=== PATIENT | female | born 1940 | race Caucasian/White ===

== ENCOUNTER 2016-07-02 13:27 | Inpatient (IN) | payer OTHER ==
[~2016-07-02] VITALS: Ht 154.9 cm; Wt 122.5 kg
[~2016-07-02 13:27] MED LIST: ALBUAER2 INH; AMLO-110 PO; AMOX875T PO; ASPI81TA25 PO; CARV6.25 PO; CRS/10 PO; DICL75TA2 PO; FURO-85 PO; INSUINJ4 SQ; METF-384 PO; NITR0.4S UT; NVLGI SC; POTA20TA16 PO; PRED10TA PO; RIVA1TAB4 PO; VALS-10 PO
--- NOTE | 2016-07-02 14:47 | EMERGENCY ROOM VISIT NOTE ---
History Report prepared by Yamiletibevan: Virginia Kunz Under the Supervision of: Dr. Lashay Kenyon M.D. First contact with patient: 14:07 Chief Complaint: SHORTNESS OF BREATH Stated Complaint: SOB, SWELLING TO FEET/LEGS, UNABLE TO VOID Nursing Triage Summary: Patient reports increase in lower extremity swelling and shortness of breath. Also states she has tightness in her chest and c/o stomach feeling "tight" History of Present Illness The patient is a 75 year old female who presents to the Emergency Room with complaints of persistent chest tightness over the past couple of days. It is worse when she exerts herself. She notes that her feet are swollen typically when she gets up in the morning, but it has since worsened and spread up her legs. Her abdomen also feels tighter - she cannot pinch herself as easily to administer insulin injections for her diabetes. This morning when she woke up, she had much less urine output than baseline despite being on Lasix. The patient has gained 11 lbs in the past several weeks. Past medical history also includes a-fib and blood clots. She is on Xarelto. Source of History: patient Onset: a couple days ago Position: chest Quality: other (tightness) Timing: other (persistent) Associated Symptoms: + urinary symptoms (decreased output) Note: Other symptoms: increased leg and abdominal swelling Review of Systems See HPI for pertinent positives & negatives. A total of 10 systems reviewed and were otherwise negative. Past Medical & Surgical Medical Problems: (1) Diabetes mellitus, type II (2) Dyslipidemia (3) History of pulmonary embolus (PE) (4) HTN (hypertension) (5) LBBB (left bundle branch block) (6) Obesity (7) KARMEN (obstructive sleep apnea) (8) PAF (paroxysmal atrial fibrillation) (9) Solitary nodule of lung Surgical Problems: (1) History of bilateral knee arthroplasty Family History Diabetes mellitus FH: heart disease Hypertension Social History Smoking Status: Never Smoker Alcohol Use: none Drug Use: none Marital Status: Housing Status: lives with family Occupation Status: retired Current/Historical Medications Scheduled Albuterol (Ventolin), 2 PUFFS INH QID Amlodipine (Norvasc), 5 MG PO DAILY Furosemide (Lasix), 20 MG PO DAILY Insulin Aspart (Novolog), 6 UNITS SC AC Insulin Glargine (Lantus Solostar Pen), 30 UNITS SQ BID Metformin Hcl (Glucophage), 1,000 MG PO BIDM Nitroglycerin (Nitrostat), 0.4 MG UT PRN Potassium Ext Rel (Klor-Con), 20 MEQ PO DAILY Rivaroxaban (Xarelto), 20 MG PO QDD Rosuvastatin Calcium (Crestor), 10 MG PO DAILY Valsartan/Hctz (Diovan Hct 320MG/12.5MG), 1 TAB PO DAILY Allergies Coded Allergies: No Known Allergies (Verified , 07/02/16) Physical Exam Vital Signs Date Time Temp Pulse Resp B/P Pulse Ox O2 Delivery O2 Flow Rate FiO2 07/02/16 18:52 96 07/02/16 18:29 94 20 133/79 98 Room Air 07/02/16 17:15 98 20 141/85 94 Room Air 07/02/16 15:15 89 20 140/88 92 Room Air 07/02/16 13:56 94 07/02/16 13:54 92 Room Air 07/02/16 13:49 92 Room Air 07/02/16 13:32 36.9 99 22 142/77 94 Room Air Physical Exam Vital signs reviewed. General: Chronically ill-appearing 75 year old female, in no significant distress. HEENT: No scleral icterus, PERRLA, neck supple. Atraumatic. Cardiovascular: Regular rate and rhythm, no extra sounds. Pulmonary: Crackles to the bases bilaterally with diminished lung sounds, normal work of breathing. Abdomen: Obese, soft, nontender, nondistended, positive bowel sounds. Musculoskeletal: Atraumatic, 2+ pitting edema to the bilateral lower extremities. Neurologic: Patient awake alert and oriented x 3, full strength in all 4 extremities. Cranial nerves 2 through 12 grossly intact. Skin: Warm, dry, no rash Medical Decision & Procedures ER Provider Diagnostic Interpretation: Radiology results as stated below per my review and radiologist interpretation: CHEST ONE VIEW PORTABLE HISTORY: Atypical chest pain. Short of breath. COMPARISON: Chest 09/27/2015. FINDINGS: There are low lung volumes. Diffuse interstitial and vascular thickening has progressed. There are small bilateral pleural effusions which have also increased in size. The heart remains enlarged. There is a left shoulder prosthesis. Bibasilar densities favor atelectasis from the low lung volumes and pleural effusions. IMPRESSION: 1. Progressive interstitial thickening and increase in size in the small bilateral pleural effusions. This likely represents mild pulmonary edema. 2. Low lung volumes and cardiomegaly persist. Electronically signed by: Alexis Coronado M.D. 07/02/2016 3:26 PM Dictated Date/Time: 07/02/2016 3:24 PM Laboratory Results Test 07/02/16 13:50 07/02/16 15:09 07/02/16 15:12 Total Bilirubin 0.6 mg/dl (0.2-1) Direct Bilirubin 0.2 mg/dl (0-0.2) Aspartate Amino Transf (AST/SGOT) 29 U/L (15-37) Alanine Aminotransferase (ALT/SGPT) 40 U/L (12-78) Alkaline Phosphatase 86 U/L (45-117) Total Protein 7.2 gm/dl (6.4-8.2) Albumin 3.6 gm/dl (3.4-5.0) Bedside Troponin I 0.000 ng/ml (0-0.045) JX-Kum-K-Type Natriuretic Peptide 2270 pg/ml (0-1800) Urine Color YELLOW Urine Appearance CLEAR (CLEAR) Urine pH 7.0 (4.5-7.5) Urine Specific [place] 1.005 (1.000-1.030) Urine Protein NEG (NEG) Urine Glucose (UA) NEG (NEG) Urine Ketones NEG (NEG) Urine Occult Blood NEG (NEG) Urine Nitrite NEG (NEG) Urine Bilirubin NEG (NEG) Urine Urobilinogen NEG (NEG) Urine Leukocyte Esterase TRACE (NEG) Urine WBC (Auto) 1-5 /hpf (0-5) Urine RBC (Auto) 0-4 /hpf (0-4) Urine Hyaline Casts (Auto) 0 /lpf (0-5) Urine Epithelial Cells (Auto) >30 /lpf (0-5) Urine Bacteria (Auto) NEG (NEG) Laboratory results per my review. Medications Administered Medications (Trade) Dose Ordered Sig/Renetta Route Start Time Stop Time Status Last Admin Dose Admin Furosemide (Lasix Inj) 40 mg NOW STAT IV 07/02/16 14:58 07/02/16 15:01 DC 07/02/16 15:14 40 MG Nitroglycerin (Nitrostat Tab) 0.4 mg Q5M PRN SL 07/02/16 15:00 07/03/16 20:44 DC 07/03/16 03:10 0.4 MG Potassium Chloride (Klor-Con Tab) 40 meq ONE ONCE PO 07/02/16 19:00 07/02/16 22:56 DC 07/02/16 23:44 40 MEQ ECG Indication: SOB/dyspnea Rate (beats per minute): 98 Rhythm: atrial fibrillation Findings: LBBB, no acute ischemic change, left axis deviation ED Course 1429: The patient was evaluated in room C11B. A complete history and physical examination was performed. 1458: Ordered Lasix Inj 40 mg IV, Nitroglycerin 0.4 mg SL. 180: Upon reevaluation, the patient is resting comfortably. I discussed laboratory and radiographic results with her. She verbalized agreement of the treatment plan. [facility] The patient will be evaluated for further management and care. Medical Decision Differential diagnosis: Etiologies such as infections, reactive airway disease, pneumonia, pneumothorax , COPD, CHF, cardiac ischemia, pulmonary embolism, musculoskeletal, gastrointestinal, as well as others were entertained. This patient was evaluated and appeared to be in no significant distress. IV access was obtained and laboratory work was drawn. The patient was placed on the teletypesetter monitor and found to be in a normal sinus rhythm. Chest x-ray reveals pulmonary vascular congestion. Patient was given 40 mg of IV Lasix. She was reevaluated. She felt as though her chest pain had not significantly improved. At this time the hospitalist has been contacted for further cardiac evaluation. Patient understands the plan and agrees. Consults Time Called: [id number] Consulting Physician: Con[facility] Returned Call: [phone] I discussed the case with her. The patient will be evaluated for further management and care. Impression Primary Impression: Congestive heart failure Additional Impression: Precordial chest pain Scribe Attestation The scribe's documentation has been prepared under my direction and personally reviewed by me in its entirety. I confirm that the note above accurately reflects all work, treatment, procedures, and medical decision making performed by me. Departure Information Dispostion Being Evaluated By Hospitalist Referrals Marion Recinos DO (PCP) Patient Instructions My [facility] Problem Qualifiers Primary Impression: Congestive heart failure Congestive heart failure type: unspecified congestive heart failure type Congestive heart failure chronicity: acute Qualified Codes: I50.9 - Heart failure, unspecified
[2016-07-02] MEDS ORDERED: FUROSEMIDE 40 MG/4 ML VIAL IV STA (14:58)
[2016-07-02 15:13] LABS: BASO % 0.4 %; BASO ABS # 0.05 K/uL (0-0.2); COMPLETE YES; HEMATOCRIT 37.1 % (37-47); IG% 0.3 %; LYMPH % 18.3 %; LYMPH ABS # 2.11 K/uL (1.2-3.4); MEAN CELL VOLUME 91.8 fL (80-100); MEAN CORPUSCULAR HEMOGLOBIN 29.5 pg (25-34); MEAN CORPUSCULAR HGB CONC 32.1 g/dl (32-36); MEAN PLATELET VOLUME 10.9 fL (7.4-10.4); MONO % 8.1 %; NEUT % 72.9 %; PLATELET COUNT 237 K/uL (130-400); RED BLOOD COUNT 4.04 M/uL (4.2-5.4); WHITE BLOOD COUNT 11.55 K/uL (4.8-10.8)
[2016-07-02 15:21] LABS: BUN/CREATININE RATIO 17.9 (10-20); CREATININE 0.94 mg/dl (0.60-1.20); MAGNESIUM 1.9 mg/dl (1.8-2.4); POTASSIUM 3.3 mmol/L (3.5-5.1)
[2016-07-02 15:26] LABS: CKMB/CK RATIO 1.4 (0-3.0)
--- NOTE | 2016-07-02 15:27 | DIAGNOSTIC IMAGING REPORT ---
CHEST ONE VIEW PORTABLE HISTORY: Atypical chest pain. Short of breath. COMPARISON: Chest 09/27/2015. FINDINGS: There are low lung volumes. Diffuse interstitial and vascular thickening has progressed. There are small bilateral pleural effusions which have also increased in size. The heart remains enlarged. There is a left shoulder prosthesis. Bibasilar densities favor atelectasis from the low lung volumes and pleural effusions. IMPRESSION: 1. Progressive interstitial thickening and increase in size in the small bilateral pleural effusions. This likely represents mild pulmonary edema. 2. Low lung volumes and cardiomegaly persist. Electronically signed by: Alexis Coronado M.D. 07/02/2016 3:26 PM Dictated Date/Time: 07/02/2016 3:24 PM
[2016-07-02 15:38] LABS: URINE APPEARANCE CLEAR (CLEAR); URINE BILIRUBIN NEG (NEG); URINE COLOR YELLOW; URINE EPITHELIAL CELL AUTO >30 /lpf (0-5); URINE NITRITE NEG (NEG); URINE SPECIFIC GRAVITY 1.005 (1.000-1.030); UROBILINOGEN NEG (NEG); ZZUR CULT IF INDIC CLEAN CATCH NO
[2016-07-02 15:51] LABS: MANUAL MICROSCOPIC REQUIRED? NO; REVIEW REQ? NO
[2016-07-02] MEDS ORDERED: ASPIRIN 81 MG ECTAB PO STA (18:58)
[2016-07-02] MEDS ORDERED: NITROGLYCERIN 0.4 MG SL PER TAB CHARGE UT SCH (19:00)
[2016-07-02] MEDS ORDERED: POTASSIUM CHLORIDE 20 MEQ TABCR PO ONE (19:00)
[2016-07-02] MEDS ORDERED: ACETAMINOPHEN 325 MG TAB PO PRN (19:15)
[2016-07-02] MEDS ORDERED: DEXTROSE 50% 50 ML SYR IV PRN (19:15)
[2016-07-02] MEDS ORDERED: ONDANSETRON INJ 2 MG/ML 2 ML VIAL IV PRN (19:15)
[2016-07-02] MEDS ORDERED: GLUCAGON FOR INJ 1 MG VIAL SQ PRN (19:15)
[2016-07-02] MEDS ORDERED: GLUCOSE 40% GEL 15 GM TUBE PO PRN (19:15)
[2016-07-02] MEDS ORDERED: GLUCOSE 10 TABS/TUBE PO PRN (19:15)
--- NOTE | 2016-07-02 19:33 | History and Physical ---
History & Physical Date & Time of Service: Jul 02, 2016 at 19:16 Chief Complaint: Sob, Swelling To Feet/Legs, Unable To Void Primary Care Physician: Marion Recinos DO History of Present Illness Source: patient, clinic records 75 year old female with history of Atrial Fibrillation on Xarelto, Moderate Mitral Regurgitation, LBBB, Chronic Leg Edema other problems noted below presenting with progressive dyspnea, chest discomfort , leg swelling and weight gain. Follows with Dr. Palmer for Cardiology. Patient was apparently at her usual state of health until last week when she started to notice exertional dyspnea, associated with chest tightness, resolving with rest. She has also noticed increased leg swelling and weight gain of about 10 lbs. Patient admits to consuming more potato chips and canned soup recently. She regularly takes her medications. She presented to her PCP and was advised to proceed to the ER. At the ER, she arrived with stable VS. BNP is elevated, CXR showed possible CHF pattern. Lasix 40mg IV was ordered. On exam, patient sitting up in in bed, appears comfortable. States she feels somewhat improved- has been diuresing well at the ER. No chest pain, palpitations, dizziness, nausea. No other symptoms. Past Medical/Surgical History Medical Problems: (1) BACKACHE NOS Status: Chronic (2) DIAB FRANK WO COMP TYPE II OR NOS/NOT UNCONTROLLED Status: Chronic (3) HYPERLIPIDEMIA NEC/NOS Status: Chronic (4) HYPERTENSION NOS Status: Chronic (5) KNEE JOINT REPLACEMENT STATUS Status: Resolved (6) LEFT BB BLOCK NEC Status: Chronic (7) OBESITY, NOS Status: Chronic (8) OTH PULMON EMBOLISM/INFARCT Status: Resolved (9) SHOULDER REGION DIS NEC Status: Resolved Family History Diabetes mellitus FH: heart disease Hypertension Social History Smoking Status: Never Smoker Drug Use: none Marital Status: Housing status: lives with family Occupational Status: retired Immunizations History of Influenza Vaccine: Yes Influenza Vaccine Date: Feb 25, 2012 History of Tetanus Vaccine?: UTD Tetanus Immunization Date: Nov 17, 2002 History of Pneumococcal: Yes Pneumococcal Date: Feb 24, 2009 History of Hepatitis B Vaccine: No Multi-Drug Resistant Organisms History of MDRO: No Allergies Coded Allergies: No Known Allergies (Verified , 07/02/16) Home Medications Scheduled Albuterol (Ventolin), 2 PUFFS INH QID Amlodipine (Norvasc), 5 MG PO DAILY Furosemide (Lasix), 20 MG PO DAILY Insulin Aspart (Novolog), 6 UNITS SC AC Insulin Glargine (Lantus Solostar Pen), 30 UNITS SQ BID Metformin Hcl (Glucophage), 1,000 MG PO BIDM Nitroglycerin (Nitrostat), 0.4 MG UT PRN Potassium Ext Rel (Klor-Con), 20 MEQ PO DAILY Rivaroxaban (Xarelto), 20 MG PO QDD Rosuvastatin Calcium (Crestor), 10 MG PO DAILY Valsartan/Hctz (Diovan Hct 320MG/12.5MG), 1 TAB PO DAILY Review of Systems * Constitutional- no fever; no weight loss Eyes- no acute visual changes ENT- no sinus drainage; no pharyngitis Pulmonary-(+) as noted above Cardiac- (+) as noted above GI- no nausea, no vomiting, no diarrhea, no melena, no hematochezia - no dysuria, no hematuria Musculoskeletal- no arthralgias, no myalgias Derm- no rashes, no new skin lesions, no changing skin lesions Hematologic- no unusual bruising, no unusual bleeding Lymphatics- no adenopathy Endocrine- no polyuria or polydipsia; no heat or cold intolerance Neuro- no headaches, no focal neurologic symptoms Psych- no anxiety, no depression Physical Exam Vital Signs Date Time Temp Pulse Resp B/P Pulse Ox O2 Delivery O2 Flow Rate FiO2 07/02/16 18:52 96 07/02/16 18:29 94 20 133/79 98 Room Air 07/02/16 17:15 98 20 141/85 94 Room Air 07/02/16 15:15 89 20 140/88 92 Room Air 07/02/16 13:56 94 07/02/16 13:54 92 Room Air 07/02/16 13:49 92 Room Air 07/02/16 13:32 36.9 99 22 142/77 94 Room Air General Appearance: WD/WN, no apparent distress Head: normocephalic, atraumatic Eyes: normal inspection, PERRL, EOMI, sclerae normal ENT: normal ENT inspection, hearing grossly normal, pharynx normal Neck: supple, no adenopathy, thyroid normal, + JVD (mild) Respiratory/Chest: chest non-tender, lungs clear, normal breath sounds, no respiratory distress, no accessory muscle use Cardiovascular: + systolic murmur (grade 2-3/6), + irregularly irregular Abdomen/GI: normal bowel sounds, non tender, soft Extremities/Musculoskelatal: + swelling (grade 1-2 lower leg edema, no tenderness/warmth/erythema) Neurologic/Psych: draw off worker II-XII nml as tested, no motor/sensory deficits, alert, normal mood/affect, normal reflexes, oriented x 3 Skin: normal color, warm/dry, no rash Lymphatic: no adenopathy Diagnostics Laboratory Results Results Past 24 Hours Test 07/02/16 13:50 07/02/16 15:09 07/02/16 15:12 Range/Units White Blood Count 11.55 4.8-10.8 K/uL Red Blood Count 4.04 4.2-5.4 M/uL Hemoglobin 11.9 12.0-16.0 g/dL Hematocrit 37.1 37-47 % Mean Corpuscular Volume 91.8 80-100 fL Mean Corpuscular Hemoglobin 29.5 25-34 pg Mean Corpuscular Hemoglobin Concent 32.1 32-36 g/dl Platelet Count 237 130-400 K/uL Mean Platelet Volume 10.9 7.4-10.4 fL Neutrophils (%) (Auto) 72.9 % Lymphocytes (%) (Auto) 18.3 % Monocytes (%) (Auto) 8.1 % Eosinophils (%) (Auto) 0.0 % Basophils (%) (Auto) 0.4 % Neutrophils # (Auto) 8.42 1.4-6.5 K/uL Lymphocytes # (Auto) 2.11 1.2-3.4 K/uL Monocytes # (Auto) 0.94 0.11-0.59 K/uL Eosinophils # (Auto) 0.00 0-0.5 K/uL Basophils # (Auto) 0.05 0-0.2 K/uL RDW Standard Deviation 56.1 36.4-46.3 fL RDW Coefficient of Variation 16.9 11.5-14.5 % Immature Granulocyte % (Auto) 0.3 % Immature Granulocyte # (Auto) 0.03 0.00-0.02 K/uL Sodium Level 144 136-145 mmol/L Potassium Level 3.3 3.5-5.1 mmol/L Chloride Level 105 98-107 mmol/L Carbon Dioxide Level 28 21-32 mmol/L Anion Gap 11.0 3-11 mmol/L Blood Urea Nitrogen 17 7-18 mg/dl Creatinine 0.94 0.60-1.20 mg/dl Est Creatinine Clear Calc Drug Dose 63.7 ml/min Estimated GFR () 68.3 Estimated GFR (Non- 58.9 BUN/Creatinine Ratio 17.9 10-20 Random Glucose 121 70-99 mg/dl Calcium Level 9.0 8.5-10.1 mg/dl Magnesium Level 1.9 1.8-2.4 mg/dl Total Bilirubin 0.6 0.2-1 mg/dl Direct Bilirubin 0.2 0-0.2 mg/dl Aspartate Amino Transf (AST/SGOT) 29 15-37 U/L Alanine Aminotransferase (ALT/SGPT) 40 12-78 U/L Alkaline Phosphatase 86 45-117 U/L Total Creatine Kinase 63 26-192 U/L Creatine Kinase MB 0.9 0.5-3.6 ng/ml Creatine Kinase MB Ratio 1.4 0-3.0 Total Protein 7.2 6.4-8.2 gm/dl Albumin 3.6 3.4-5.0 gm/dl Bedside Troponin I 0.000 0-0.045 ng/ml QU-Xiz-R-Type Natriuretic Peptide 2270 0-1800 pg/ml Urine Color YELLOW Urine Appearance CLEAR CLEAR Urine pH 7.0 4.5-7.5 Urine Specific [place] 1.005 1.000-1.030 Urine Protein NEG NEG Urine Glucose (UA) NEG NEG Urine Ketones NEG NEG Urine Occult Blood NEG NEG Urine Nitrite NEG NEG Urine Bilirubin NEG NEG Urine Urobilinogen NEG NEG Urine Leukocyte Esterase TRACE NEG Urine WBC (Auto) 1-5 0-5 /hpf Urine RBC (Auto) 0-4 0-4 /hpf Urine Hyaline Casts (Auto) 0 0-5 /lpf Urine Epithelial Cells (Auto) >30 0-5 /lpf Urine Bacteria (Auto) NEG NEG Diagnostic Radiology CXR 1. Progressive interstitial thickening and increase in size in the small bilateral pleural effusions. This likely represents mild pulmonary edema. 2. Low lung volumes and cardiomegaly persist. EKG A fib, HR 98, LBBB Impression Assessment and Plan 75 year old female with history of Atrial Fibrillation on Xarelto, Moderate Mitral Regurgitation, LBBB, Chronic Leg Edema other problems noted below presenting with progressive dyspnea, chest discomfort , leg swelling and weight gain. POSSIBLE CHF EXACERBATION HISTORY OF MITRAL REGURGITATION - Lasix 40mg IV given - check echo - continue Carvedilol, Valsartan Cardiology consulted - Fluid restriction CHEST DISCOMFORT - likely from above - serial cardiac markers start Aspirin continue Xarelto, Statin, Carvedilol, Valsartan HYPOKALEMIA - PO K ordered - monitor PAROXYSMAL A FIB - continue Carvedilol, Xarelto DM 2 - continue Lantus BID ISS HLD - continue Crestor KARMEN CPAP intolerant HISTORY OF PE continue Xarelto LBBB chronic OBESITY DVT prophylaxis on Xarelto Disposition pending lives at home with will need Home Health Services VTE Prophylaxis VTE Risk Assessment Done? Y/N: Yes Risk Level: High
[2016-07-02] MEDS ORDERED: LEVALBUTEROL/IPRATROPIUM NEB INH SCH (21:00)
[2016-07-02] MEDS: INSULIN ASPART 100 UNITS/ML 3 ML PEN SC SCH (21:00)
[2016-07-02 21:55] LABS: CKMB/CK RATIO 1.1 (0-3.0)
[2016-07-02] MEDS: CARVEDILOL 12.5 MG TAB PO SCH (23:45)
[2016-07-02] MEDS: RIVAROXABAN 10 MG TAB PO SCH (23:46)
[2016-07-02] MEDS: INSULIN GLARGINE SOLOSTAR 100 UNITS/ML 3 ML PEN SQ SCH (23:48)
[2016-07-03] VITALS (10 sets, daily range): BP systolic 111–157; BP diastolic 70–76; PULSE 85–96; TEMP 36.3–36.7; O2SAT 88–95; Ht 154.9 cm; Wt 122.5 kg
[2016-07-03] MEDS: NITROGLYCERIN 0.4 MG SL PER TAB CHARGE SL PRN ×3 (03:00→03:10)
[2016-07-03 03:58] LABS: CKMB/CK RATIO 1.2 (0-3.0)
[2016-07-03 06:29] LABS: ESTIMATED AVERAGE GLUCOSE 140 mg/dl; HA1C FLAG Normal (Normal)
[2016-07-03] MEDS: IPRATROPIUM BROMIDE NEB SOLN 0.02% 2.5 ML VIAL INH SCH ×2 (07:33→14:10)
[2016-07-03] MEDS: LEVALBUTEROL 1.25MG/0.5ML NEB INH SCH ×2 (07:33→14:10)
[2016-07-03] MEDS ORDERED: PERFLUTREN LIPID MICROSPHERE (DEFINITY) IV ONE (07:44)
[2016-07-03] MEDS: INSULIN ASPART 100 UNITS/ML 3 ML PEN SC SCH ×4 (08:47→20:54)
--- NOTE | 2016-07-03 08:57 | ECHOCARDIOGRAM REPORT ---
*NOTICE TO RECEIVING LIBERTARIAN AGENCY This information is strictly Confidential and protected under [place] law. [place] law prohibits you from making any further disclosure of this information unless further disclosure is expressly permitted by the written consent of the person to whom it pertains or is authorized by law. A general authorization for the release of medical or other information is not sufficient for this purpose. Hospital accepts no responsibility if the information is made available to any other person, INCLUDING THE PATIENT. Interpretation Summary * Name: ZULMA ESPANA Study Date: 07/03/2016 06:59 AM BP: 119/74 mmHg * Patient Location: .[facility]\S\N285\S\2 HR: 95 * : 1940 (M/d/yyyy) Gender: Female Height: 61 in * Age: 75 yrs Ethnicity: [place] Weight: 278 lb * Ordering Physician: Shay Spaulding * Performed By: Mary Kothari * * Reason For Study: CHF * BSA: 2.2 m2 * The study was technically limited. * -- Conclusions -- * The left ventricle is normal in size. * Ejection Fraction = 60-65%. * Septal motion is consistent with conduction abnormality. * The right ventricular systolic function is normal. * The left atrium is moderately dilated. * The right atrium is mild to moderately dilated. * There is moderate mitral regurgitation. * There is moderate tricuspid regurgitation. * The study was technically limited. Procedure Details * A complete two-dimensional transthoracic echocardiogram was performed (2D, M-mode, Doppler and color flow Doppler). * The study was technically difficult. * There were technical limitations due to patient'spoor positioning and body habitus. * Limited views were obtained. * A contrast injection of Definity was performed to improve assessment of LV function. * Contrast was injected into an intravenous site in the right arm. * One vial of Definity ultrasound contrast was diluted in normal saline to a total volume of 10 ml. A total of '4' ml of solution was administered during imaging. * Lot # [id number] of Definity utilized for procedure. * Expiration date 07/06. * The attending nurse who injected the contrast agent was ARJUN TINSLEY RN. Left Ventricle * The left ventricle is normal in size. * There is normal left ventricular wall thickness. * Ejection Fraction = 60-65%. * Septal motion is consistent with conduction abnormality. Right Ventricle * The right ventricle is grossly normal size. * The right ventricular systolic function is normal. Atria * The left atrium is moderately dilated. * The right atrium is mild to moderately dilated. * The interatrial septum is intact with no evidence for an atrial septal defect. Mitral Valve * There is moderate mitral annular calcification. * There is moderate mitral regurgitation. Tricuspid Valve * The tricuspid valve is not well visualized, but is grossly normal. * There is moderate tricuspid regurgitation. Aortic Valve * The aortic valve is not well visualized. * No hemodynamically significant valvular aortic stenosis. * There is no significant aortic regurgitation. Pulmonic Valve * The pulmonic valve is not well visualized. MMode 2D Measurements and Calculations IVSd 1.5 cm IVSs 2.0 cm LVIDd 4.4 cm LVIDs 2.9 cm LVPWd 1.0 cm LVPWs 2.0 cm IVS/LVPW 1.5 FS 33.6 % EDV(Teich) 85.9 ml ESV(Teich) 32.1 ml EF(Teich) 62.6 % EDV(cubed) 82.9 ml ESV(cubed) 24.3 ml EF(cubed) 70.7 % % IVS thick 28.9 % % LVPW thick 91.9 % LV mass(C)d 208.4 grams LV mass(C)dI 95.9 grams/m\S\2 LV mass(C)s 248.6 grams LV mass(C)sI 114.4 grams/m\S\2 CO(Teich) 3.9 l/min CI(Teich) 1.8 l/min/m\S\2 SV(Teich) 53.8 ml SI(Teich) 24.8 ml/m\S\2 CO(cubed) 4.3 l/min CI(cubed) 2.0 l/min/m\S\2 SV(cubed) 58.7 ml SI(cubed) 27.0 ml/m\S\2 ACS 1.7 cm LA dimension 5.2 cm asc Aorta Diam 3.4 cm LVOT diam 2.3 cm LVOT area 4.0 cm\S\2 LVAd ap4 38.6 cm\S\2 LVLd ap4 10.0 cm EDV(MOD-sp4) 122.0 ml LVAs ap4 22.2 cm\S\2 LVLs ap4 8.2 cm ESV(MOD-sp4) 46.0 ml EF(MOD-sp4) 62.3 % LVAd ap2 38.8 cm\S\2 LVLd ap2 9.8 cm EDV(MOD-sp2) 127.0 ml LVAs ap2 20.6 cm\S\2 LVLs ap2 7.3 cm ESV(MOD-sp2) 47.0 ml EF(MOD-sp2) 63.0 % CO(MOD-sp4) 5.5 l/min CI(MOD-sp4) 2.6 l/min/m\S\2 SV(MOD-sp4) 76.0 ml SI(MOD-sp4) 35.0 ml/m\S\2 CO(MOD-sp2) 5.8 l/min CI(MOD-sp2) 2.7 l/min/m\S\2 SV(MOD-sp2) 80.0 ml SI(MOD-sp2) 36.8 ml/m\S\2 Doppler Measurements and Calculations MV E max doreen 117.0 cm/sec MV dec time 0.32 sec Ao V2 max 95.0 cm/sec Ao max PG 3.6 mmHg Ao max PG (full) 2.2 mmHg DAMIAN(V,A) 2.5 cm\S\2 DAMIAN(V,D) 2.5 cm\S\2 LV V1 max PG 1.4 mmHg LV V1 max 59.0 cm/sec MR max doreen 474.4 cm/sec MR max PG 90.0 mmHg MR mean doreen 353.8 cm/sec MR mean PG 56.3 mmHg MR VTI 148.2 cm PA V2 max 79.0 cm/sec PA max PG 2.5 mmHg PI end-d doreen 99.9 cm/sec TR max doreen 304.9 cm/sec
[2016-07-03] MEDS: VALSARTAN/HCTZ 320/12.5 MG TAB PO SCH (09:00)
[2016-07-03] MEDS: INSULIN GLARGINE SOLOSTAR 100 UNITS/ML 3 ML PEN SQ SCH ×2 (09:00→20:55)
[2016-07-03] MEDS: FUROSEMIDE INJ 40 MG in SYRINGE 0 ML IV SCH (09:22)
--- NOTE | 2016-07-03 09:31 | Clinical Documentation Query ---
ALE Martinez : CLINICAL DOCUMENTATION QUERY Patient is a 75 year old female admitted for possible CHF exacerbation, not otherwise specified. Noted history of mitral regurgitation and hypertension. Echocardiogram demonstrated normal biventricular systolic function. She is being monitored on telemetry, is receiving IV Lasix, continued on Coreg and Valsartan, will be maintained on a fluid restriction, monitored by I/O, daily weights, and is to be seen in consultation by cardiology. In your clinical opinion is this patient being managed for: ( ) Acute on chronic diastolic congestive heart failure ( ) Other explanation of clinical findings (Please Explain) ( ) Unable to determine (Please Define) ( ) Need to Discuss ( ) Not Agree The medical record reflects the following clinical findings, treatment, and risk factors. Clinical Indicators: As above Treatment: She is being monitored on telemetry, is receiving IV Lasix, continued on Coreg and Valsartan, will be maintained on a fluid restriction, monitored by I/O, daily weights, and is to be seen in consultation by cardiology. Risk Factors: Age, hypertension, valvular disease. Please clarify and document your clinical opinion in the progress notes and discharge summary. Terms such as "probable", "suspected", "likely", "questionable", "possible", or "still to be ruled out" are acceptable. IF IN AGREEMENT, YOU MUST DOCUMENT ABOVE DIAGNOSTIC STATEMENT IN DAILY PROGRESS NOTES AND DISCHARGE SUMMARY. This document is not part of the patient's record. Thank You, Josiah Ferraro, RN [phone]
[2016-07-03] MEDS: ASPIRIN 81 MG ECTAB PO SCH (12:14)
[2016-07-03] MEDS: CARVEDILOL 12.5 MG TAB PO SCH ×2 (12:15→20:51)
[2016-07-03] MEDS: ROSUVASTATIN CALCIUM 10 MG TAB PO SCH (12:15)
[2016-07-03] MEDS: POTASSIUM CHLORIDE 20 MEQ TABCR PO SCH (12:21)
[2016-07-03] MEDS: AMLODIPINE BESYLATE 5 MG TAB PO SCH (12:22)
--- NOTE | 2016-07-03 15:24 | Progress Note ---
Medicine Progress Note Date & Time of Visit: Jul 03, 2016 at 15:17. Subjective patient seen resting in bed, states she feels improved compared to yesterday denies dyspnea on exertion feels her extremities are less swollen denies chest pain, dizziness, palpitations no other symptoms Objective Last 8 Hrs Date Time Temp Pulse Resp B/P Pulse Ox O2 Delivery O2 Flow Rate FiO2 07/03/16 14:10 92 18 93 Nasal Cannula 2.0 07/03/16 12:00 95 Room Air 2.0 07/03/16 11:28 36.3 96 18 122/71 94 2.0 07/03/16 08:00 88 Room Air 2.0 07/03/16 08:00 36.7 93 20 157/70 93 Nasal Cannula 2.0 07/03/16 07:34 95 18 88 Room Air Physical Exam: General- oriented x 3, not in distress, speaks in sentences with no effort Eyes- anicteric ENT- oropharynx clear Neck- supple, no JVD, no adenopathy Lungs- clear to auscultation bilaterally Heart- normal rate , irregularly irregular rhythm; no murmurs Abdomen- normal bowel sounds, soft, nontender Extremities- grade 1 pretibial edema, no calf tenderness; peripheral pulses intact Neuro- alert, oriented x 3; no gross focal deficits Skin- warm & dry Laboratory Results: Last 24 Hours Test 07/02/16 21:00 07/03/16 03:30 07/03/16 08:02 07/03/16 11:47 Total Creatine Kinase 61 U/L 57 U/L Creatine Kinase MB 0.7 ng/ml 0.7 ng/ml Creatine Kinase MB Ratio 1.1 1.2 Troponin I < 0.015 ng/ml < 0.015 ng/ml Estimated Average Glucose 140 mg/dl Hemoglobin A1c 6.5 % Bedside Glucose 80 mg/dl 90 mg/dl Test 07/03/16 14:48 Assessment & Plan ECHO -- Conclusions -- * The left ventricle is normal in size. * Ejection Fraction = 60-65%. * Septal motion is consistent with conduction abnormality. * The right ventricular systolic function is normal. * The left atrium is moderately dilated. * The right atrium is mild to moderately dilated. * There is moderate mitral regurgitation. * There is moderate tricuspid regurgitation. * The study was technically limited. 75 year old female with history of Atrial Fibrillation on Xarelto, Moderate Mitral Regurgitation, LBBB, Chronic Leg Edema other problems noted below presenting with progressive dyspnea, chest discomfort , leg swelling and weight gain. POSSIBLE CHF EXACERBATION, VALVULAR ETIOLOGY? MODERATE MITRAL AND TRICUSPID REGURGITATION - patient also admits dietary indiscretion recently - echo noted above - on lasix 40mg IV diuresing well - clinically improving - continue Lasix 40mg IV daily continue usual Carvedilol, Valsartan Cardiology consulted - Fluid restriction CHEST DISCOMFORT - likely from above - serial cardiac markers: negative started Aspirin continue Xarelto, Statin, Carvedilol, Valsartan HYPOKALEMIA - PO K ordered - PRP pending PAROXYSMAL A FIB - continue Carvedilol, Xarelto DM 2 - continue Lantus BID ISS HLD - continue Crestor KARMEN CPAP intolerant HISTORY OF PE continue Xarelto LBBB chronic OBESITY DVT prophylaxis on Xarelto Disposition pending lives at home with will need Home Health Services Current Inpatient Medications: Current Inpatient Medications Medications (Trade) Dose Ordered Sig/Renetta Route Start Time Stop Time Status Last Admin Dose Admin Nitroglycerin 0.4 mg 0.4 mg Q5M PRN SL 07/02/16 15:00 08/01/16 14:59 07/03/16 03:10 0.4 MG Furosemide/Syringe (Lasix Inj/ Syringe) 4 ml @ 4 mls/min DAILY IV 07/03/16 09:00 08/02/16 08:59 07/03/16 09:22 4 MLS/MIN Aspirin (Ecotrin Tab) 81 mg QAM PO 07/03/16 09:00 08/02/16 08:59 07/03/16 12:14 81 MG Insulin Aspart (novoLOG ASPART) SLIDING SCALE G... ACHS SC 07/02/16 21:00 08/01/16 20:59 Amlodipine Besylate (Norvasc Tab) 5 mg DAILY PO 07/03/16 09:00 08/02/16 08:59 07/03/16 12:22 5 MG Insulin Glargine (Lantus Solostar Pen) 30 unit BID SQ 07/02/16 21:00 08/01/16 20:59 07/02/16 23:48 30 UNIT Nitroglycerin (Nitrostat Tab) 0.4 mg PRN UT 07/02/16 19:00 08/01/16 18:59 Potassium Chloride (Klor-Con Tab) 20 meq DAILY PO 07/03/16 09:00 08/02/16 08:59 07/03/16 12:21 20 MEQ Rivaroxaban (Xarelto Tab) 20 mg DAILY@1800 PO 07/02/16 21:00 08/01/16 20:59 07/02/16 23:46 20 MG Rosuvastatin Calcium (Crestor Tab) 10 mg DAILY PO 07/03/16 09:00 08/02/16 08:59 07/03/16 12:15 10 MG HCTZ/Valsartan (Diovan Hct 320/ 12.5MG Tab) 1 tab DAILY PO 07/03/16 09:00 08/02/16 08:59 Glucose (Glucose 40% Gel) 15-30 GRAMS 15 GRAMS... UD PRN PO 07/02/16 19:15 08/01/16 19:14 Glucose (Glucose Chew Tab) 4-8 Tablets 4 Tabl... UD PRN PO 07/02/16 19:15 08/01/16 19:14 Dextrose (Dextrose 50% 50ML Syringe) 25-50ML OF 50% DW IV FOR... UD PRN IV 07/02/16 19:15 08/01/16 19:14 Glucagon (Glucagon Inj) 1 mg UD PRN SQ 07/02/16 19:15 08/01/16 19:14 Acetaminophen (Tylenol Tab) 650 mg Q4H PRN PO 07/02/16 19:15 08/01/16 19:14 Ondansetron HCl (Zofran Inj) 4 mg Q6H PRN IV 07/02/16 19:15 08/01/16 19:14 Carvedilol (Coreg Tab) 12.5 mg BID PO 07/02/16 21:00 08/01/16 20:59 07/03/16 12:15 12.5 MG Ipratropium [place] (Atrovent 0.02% 0.5MG/2.5ML Neb) 0.5 mg Q6RWA INH 07/03/16 09:00 08/02/16 08:59 07/03/16 14:10 0.5 MG Levalbuterol (Xopenex 1.25MG/ 0.5ML Neb) 1.25 mg Q6RWA INH 07/03/16 09:00 08/02/16 08:59 07/03/16 14:10 1.25 MG
[2016-07-03 15:33] LABS: BASO % 0.4 %; BASO ABS # 0.05 K/uL (0-0.2); COMPLETE YES; HEMATOCRIT 36.8 % (37-47); IG% 0.4 %; LYMPH % 17.2 %; LYMPH ABS # 1.95 K/uL (1.2-3.4); MEAN CELL VOLUME 88.9 fL (80-100); MEAN CORPUSCULAR HEMOGLOBIN 28.5 pg (25-34); MEAN CORPUSCULAR HGB CONC 32.1 g/dl (32-36); MEAN PLATELET VOLUME 10.1 fL (7.4-10.4); MONO % 9.3 %; NEUT % 72.7 %; PLATELET COUNT 239 K/uL (130-400); RED BLOOD COUNT 4.14 M/uL (4.2-5.4); WHITE BLOOD COUNT 11.31 K/uL (4.8-10.8)
[2016-07-03 16:01] LABS: BUN/CREATININE RATIO 19.2 (10-20); CALCIUM 9.3 mg/dl (8.5-10.1); CREATININE 0.92 mg/dl (0.60-1.20); POTASSIUM 3.3 mmol/L (3.5-5.1)
--- NOTE | 2016-07-03 16:47 | CARDIOLOGY CONSULTATION ---
DATE OF CONSULTATION: 07/03/2016 DATE OF CONSULTATION: 07/03/2016. Consultation for the [facility]. REASON FOR CONSULTATION: Heart failure. HISTORY OF PRESENT ILLNESS: This is a 75-year-old female with multiple medical problems including obesity, atrial fibrillation, diastolic heart failure, sleep apnea and chronic lower extremity edema. She admits to not being compliant with her diet and eating a lot of potato chips recently. Over the past several days she has noticed some increased lower extremity edema and shortness of breath. She presented to the Emergency Department where she has been given IV diuretics and has felt much improved. She has no complaints of chest pain or heart palpitations. Her echocardiogram completed this admission indicates preserved left ventricular systolic function with evidence of septal conduction abnormality due to left bundle branch block. There is moderate mitral and tricuspid regurgitation. EKG on admission reveals atrial fibrillation with left bundle branch block. Currently, the patient is resting comfortably. ALLERGIES: No known medical allergies. PAST MEDICAL HISTORY: As outlined above, the patient has a history of obesity, hypertension, dyslipidemia, diabetes, sleep apnea, atrial fibrillation, diastolic heart failure, left bundle branch block. SOCIAL HISTORY: She lives with her . She is a nonsmoker. FAMILY MEDICAL HISTORY: Noncontributory. REVIEW OF SYSTEMS: A 10-point review of systems is negative except for the history of chief complaint. PHYSICAL EXAMINATION: VITAL SIGNS: Blood pressure is 150/70, pulse is irregular at 90 beats per minute. GENERAL: She is afebrile. HEAD, EYES, EARS, NOSE, AND THROAT: She is normocephalic. Pupils are equal and reactive to light. Extraocular muscles are intact bilaterally. NECK: The neck veins are flat. Carotids have good upstrokes bilaterally without bruits. Thyroid is nonpalpable. RESPIRATORY: Breath sounds equal bilaterally and clear to auscultation. CARDIOVASCULAR: Heart has an irregular rhythm. Normal S1, S2. No S3, S4. GASTROINTESTINAL: Abdomen is obese, soft, nontender without organomegaly. EXTREMITIES: Have edema to the mid calves bilaterally. NEUROLOGIC: Grossly intact. SKIN: Warm to touch. LYMPH NODES: Negative to palpation. LABORATORY DATA: Hemoglobin is 11.8, creatinine is 0.94. Pro-natriuretic peptide is 2270. Troponins are negative. IMPRESSION: 1. Acute on chronic diastolic heart failure. 2. Atrial fibrillation. 3. Obesity. 4. Sleep apnea. 5. Diabetes. 6. Hypertension. 7. Dyslipidemia. RECOMMENDATIONS: I would continue the patient's diaphoresis until she is at her true weight. She should have her electrolytes replaced such as potassium. She was also recently diagnosed with gout and with the diabetics she may relapse and we have to be careful. Otherwise she is doing well.
[2016-07-03] MEDS ORDERED: LEVALBUTEROL 1.25MG/0.5ML NEB INH PRN (17:00)
[2016-07-03] MEDS ORDERED: IPRATROPIUM BROMIDE NEB SOLN 0.02% 2.5 ML VIAL INH PRN (17:00)
[2016-07-03] MEDS: RIVAROXABAN 10 MG TAB PO SCH (18:23)
[2016-07-03] MEDS ORDERED: POTASSIUM CHLORIDE 20 MEQ TABCR PO ONE (21:00)
[2016-07-04 04:00] VITALS: O2SAT 96
[2016-07-04 04:40] VITALS: BP 140/83; PULSE 91; TEMP 36.5; O2SAT 96
[2016-07-04 07:43] VITALS: BP 131/75; PULSE 93; TEMP 36.5; O2SAT 90
[2016-07-04] MEDS: ROSUVASTATIN CALCIUM 10 MG TAB PO SCH (07:54)
[2016-07-04] MEDS: CARVEDILOL 12.5 MG TAB PO SCH ×2 (07:54→20:48)
[2016-07-04] MEDS: FUROSEMIDE INJ 40 MG in SYRINGE 0 ML IV SCH ×2 (07:54→17:19)
[2016-07-04] MEDS: ASPIRIN 81 MG ECTAB PO SCH (07:55)
[2016-07-04] MEDS: VALSARTAN/HCTZ 320/12.5 MG TAB PO SCH (07:55)
[2016-07-04] MEDS: POTASSIUM CHLORIDE 20 MEQ TABCR PO SCH (07:56)
[2016-07-04] MEDS: AMLODIPINE BESYLATE 5 MG TAB PO SCH (07:57)
[2016-07-04] MEDS: INSULIN ASPART 100 UNITS/ML 3 ML PEN SC SCH ×4 (08:34→20:52)
[2016-07-04] MEDS: INSULIN GLARGINE SOLOSTAR 100 UNITS/ML 3 ML PEN SQ SCH ×2 (08:36→20:51)
[2016-07-04 10:24] LABS: BUN/CREATININE RATIO 18.8 (10-20); CALCIUM 9.2 mg/dl (8.5-10.1); CREATININE 0.95 mg/dl (0.60-1.20); MAGNESIUM 2.1 mg/dl (1.8-2.4); POTASSIUM 3.4 mmol/L (3.5-5.1)
--- NOTE | 2016-07-04 11:08 | PROGRESS NOTE ---
DATE: 07/04/2016 FOLLOWUP VISIT SUBJECTIVE: The patient is a 75-year-old with a history of multiple medical problems including obesity, atrial fibrillation, diastolic heart failure, sleep apnea, and chronic lower extremity edema. She has not been compliant with diet at home. She presented with increasing lower extremity edema and shortness of breath due to volume overload. She has been given diuretics and has lost 3 kilograms of body weight so far. Of note, is that she is not being compliant here in the hospital with fluid restriction. She also takes her oxygen off when it is bothering her. She still desaturates without supplemental oxygen. The patient now understands regarding the fluid restriction, as well as oxygen. Of note, is that she was scheduled to have a sleep evaluation, which was never completed. After discharge, she needs to have an evaluation for sleep apnea. OBJECTIVE: VITAL SIGNS: Blood pressure 130/70, pulse is regular at 93. GENERAL: She is afebrile. HEENT: She is normocephalic. Pupils are equal and reactive to light. Extraocular muscles are intact bilaterally. NECK: The neck veins are flat. The carotids have good upstrokes bilaterally without bruits. Thyroid is nonpalpable. RESPIRATORY: Breath sounds equal bilaterally and clear to auscultation. CARDIOVASCULAR: Heart has a regular rhythm. There is normal S1, S2. No S3, S4. GASTROINTESTINAL: Abdomen is soft, nontender without organomegaly. EXTREMITIES: Free of edema, digit clubbing, or cyanosis. NEUROLOGIC: Grossly intact. SKIN: Warm to touch. LYMPH NODES: Negative to palpation. IMPRESSION: 1. Acute on chronic diastolic heart failure. 2. Atrial fibrillation. 3. Obesity. 4. Sleep apnea. 5. Diabetes. 6. Hypertension. 7. Dyslipidemia. 8. Left bundle branch block. RECOMMENDATIONS: I increased the patient's Lasix to twice daily. It should provide additional diuresis for her. She has refused a Jean catheter and has been going to the bathroom. I do not believe her I\T\Os are accurate. She has only lost approximately 3 kilograms of weight since her admission and I think the increased diuretics would help augment that. As mentioned above, I believe that she needs a sleep evaluation at some point.
[2016-07-04 12:22] VITALS: BP 129/78; PULSE 96; TEMP 36.8; O2SAT 95
[2016-07-04 17:15] VITALS: BP 138/77; PULSE 94; TEMP 37.1; O2SAT 97
[2016-07-04] MEDS: RIVAROXABAN 10 MG TAB PO SCH (17:20)
--- NOTE | 2016-07-04 18:26 | Progress Note ---
Medicine Progress Note Date & Time of Visit: Jul 04, 2016 at 18:22. Subjective seen resting in bed, comfortable has more leg swelling today no dyspnea, chest pain, palpitations, dizziness, nausea no other symptoms Objective Last 8 Hrs Date Time Temp Pulse Resp B/P Pulse Ox O2 Delivery O2 Flow Rate FiO2 07/04/16 17:15 37.1 94 18 138/77 97 2.0 07/04/16 16:00 Nasal Cannula 2.0 07/04/16 12:22 36.8 96 18 129/78 95 2.0 07/04/16 12:00 Nasal Cannula 2.0 Physical Exam: General- oriented x 3, not in distress, speaks in sentences with no effort Neck- supple, no JVD Lungs- clear breath sounds bilaterally, no rales/wheezes Heart- normal rate , irregularly irregular rhythm; no murmurs Abdomen- normal bowel sounds, soft, nontender Extremities- grade 2 pretibial edema, no calf tenderness; peripheral pulses intact Neuro- alert, oriented x 3; no gross focal deficits Skin- warm & dry Laboratory Results: Last 24 Hours Test 07/03/16 20:26 07/04/16 07:33 07/04/16 09:32 07/04/16 11:31 Bedside Glucose 171 mg/dl 101 mg/dl 113 mg/dl Sodium Level 143 mmol/L Potassium Level 3.4 mmol/L Chloride Level 104 mmol/L Carbon Dioxide Level 29 mmol/L Anion Gap 10.0 mmol/L Blood Urea Nitrogen 18 mg/dl Creatinine 0.95 mg/dl Est Creatinine Clear Calc Drug Dose 61.9 ml/min Estimated GFR () 67.4 Estimated GFR (Non- 58.2 BUN/Creatinine Ratio 18.8 Random Glucose 144 mg/dl Calcium Level 9.2 mg/dl Magnesium Level 2.1 mg/dl Test 07/04/16 16:38 Bedside Glucose 103 mg/dl Assessment & Plan ECHO -- Conclusions -- * The left ventricle is normal in size. * Ejection Fraction = 60-65%. * Septal motion is consistent with conduction abnormality. * The right ventricular systolic function is normal. * The left atrium is moderately dilated. * The right atrium is mild to moderately dilated. * There is moderate mitral regurgitation. * There is moderate tricuspid regurgitation. * The study was technically limited. 75 year old female with history of Atrial Fibrillation on Xarelto, Moderate Mitral Regurgitation, LBBB, Chronic Leg Edema other problems noted below presenting with progressive dyspnea, chest discomfort , leg swelling and weight gain. POSSIBLE CHF EXACERBATION, ACUTE ON CHRONIC DIASTOLIC TYPE, VALVULAR ETIOLOGY? MODERATE MITRAL AND TRICUSPID REGURGITATION - patient also admits dietary indiscretion recently - echo noted above - (+) increased edema increase Lasix to 40mg IV q12 continue usual Carvedilol, Valsartan Cardiology consulted- appreciate the recommendations - Fluid restriction CHEST DISCOMFORT - likely from above - serial cardiac markers: negative started Aspirin continue Xarelto, Statin, Carvedilol, Valsartan HYPOKALEMIA - K 40meq BID ordered - monitor PAROXYSMAL A FIB - continue Carvedilol, Xarelto DM 2 - continue Lantus BID ISS HLD - continue Crestor KARMEN CPAP intolerant HISTORY OF PE continue Xarelto LBBB chronic OBESITY DVT prophylaxis on Xarelto Disposition pending lives at home with will need Home Health Services Current Inpatient Medications: Current Inpatient Medications Medications (Trade) Dose Ordered Sig/Renetta Route Start Time Stop Time Status Last Admin Dose Admin Aspirin (Ecotrin Tab) 81 mg QAM PO 07/03/16 09:00 08/02/16 08:59 07/04/16 07:55 81 MG Insulin Aspart (novoLOG ASPART) SLIDING SCALE G... ACHS SC 07/02/16 21:00 08/01/16 20:59 07/04/16 17:18 1 UNITS Amlodipine Besylate (Norvasc Tab) 5 mg DAILY PO 07/03/16 09:00 08/02/16 08:59 07/04/16 07:57 5 MG Insulin Glargine (Lantus Solostar Pen) 30 unit BID SQ 07/02/16 21:00 08/01/16 20:59 07/04/16 08:36 30 UNIT Nitroglycerin (Nitrostat Tab) 0.4 mg PRN UT 07/02/16 19:00 08/01/16 18:59 Rivaroxaban (Xarelto Tab) 20 mg DAILY@1800 PO 07/02/16 21:00 08/01/16 20:59 07/04/16 17:20 20 MG Rosuvastatin Calcium (Crestor Tab) 10 mg DAILY PO 07/03/16 09:00 08/02/16 08:59 07/04/16 07:54 10 MG HCTZ/Valsartan (Diovan Hct 320/ 12.5MG Tab) 1 tab DAILY PO 07/03/16 09:00 08/02/16 08:59 07/04/16 07:55 1 TAB Glucose (Glucose 40% Gel) 15-30 GRAMS 15 GRAMS... UD PRN PO 07/02/16 19:15 08/01/16 19:14 Glucose (Glucose Chew Tab) 4-8 Tablets 4 Tabl... UD PRN PO 07/02/16 19:15 08/01/16 19:14 Dextrose (Dextrose 50% 50ML Syringe) 25-50ML OF 50% DW IV FOR... UD PRN IV 07/02/16 19:15 08/01/16 19:14 Glucagon (Glucagon Inj) 1 mg UD PRN SQ 07/02/16 19:15 08/01/16 19:14 Acetaminophen (Tylenol Tab) 650 mg Q4H PRN PO 07/02/16 19:15 08/01/16 19:14 Ondansetron HCl (Zofran Inj) 4 mg Q6H PRN IV 07/02/16 19:15 08/01/16 19:14 Carvedilol (Coreg Tab) 12.5 mg BID PO 07/02/16 21:00 08/01/16 20:59 07/04/16 07:54 12.5 MG Ipratropium [employer] (Atrovent 0.02% 0.5MG/2.5ML Neb) 0.5 mg Q4H PRN INH 07/03/16 17:00 08/02/16 16:59 Levalbuterol 1.25 mg 1.25 mg Q4H PRN INH 07/03/16 17:00 08/02/16 16:59 Furosemide/Syringe (Lasix Inj/ Syringe) 4 ml @ 4 mls/min BID17 IV 07/04/16 17:00 08/03/16 20:59 07/04/16 17:19 4 MLS/MIN Potassium Chloride (Klor-Con Tab) 40 meq ONE PO 07/04/16 18:15 08/03/16 18:14 UNV Potassium Chloride (Klor-Con Tab) 40 meq BID PO 07/05/16 09:00 08/04/16 08:59 UNV
[2016-07-04] MEDS ORDERED: POTASSIUM CHLORIDE 20 MEQ TABCR PO ONE (19:00)
[2016-07-04 19:43] VITALS: BP 158/85; PULSE 92; TEMP 36.8; O2SAT 95
[2016-07-05] VITALS (8 sets, daily range): BP systolic 98–129; BP diastolic 63–77; PULSE 59–97; TEMP 36.3–37.1; O2SAT 90–97
[2016-07-05] MEDS: FUROSEMIDE INJ 40 MG in SYRINGE 0 ML IV SCH ×2 (07:40→17:17)
[2016-07-05] MEDS: ASPIRIN 81 MG ECTAB PO SCH (07:41)
[2016-07-05] MEDS: CARVEDILOL 12.5 MG TAB PO SCH ×2 (07:41→20:55)
[2016-07-05] MEDS: VALSARTAN/HCTZ 320/12.5 MG TAB PO SCH (07:41)
[2016-07-05] MEDS: POTASSIUM CHLORIDE 20 MEQ TABCR PO SCH ×2 (07:41→20:56)
[2016-07-05] MEDS: ROSUVASTATIN CALCIUM 10 MG TAB PO SCH (07:41)
[2016-07-05] MEDS: AMLODIPINE BESYLATE 5 MG TAB PO SCH (07:42)
[2016-07-05 07:43] LABS: CREATININE 0.98 mg/dl (0.60-1.20)
[2016-07-05] MEDS: INSULIN GLARGINE SOLOSTAR 100 UNITS/ML 3 ML PEN SQ SCH ×2 (08:16→21:01)
[2016-07-05] MEDS: INSULIN ASPART 100 UNITS/ML 3 ML PEN SC SCH ×4 (08:16→21:00)
[2016-07-05] MEDS ORDERED: ALLOPURINOL 100 MG TAB PO ONE (10:45)
--- NOTE | 2016-07-05 11:32 | CARDIOLOGY PROGRESS NOTE ---
DATE: 07/05/2016 DATE: 07/05/2016. FOLLOW-UP VISIT SUBJECTIVE: The patient is a 75-year-old female with multiple medical problems including obesity, atrial fibrillation, diastolic heart failure, sleep apnea and chronic lower extremity edema. She presented with volume overload. She has been diuresed and has lost approximately 10 kilograms in weight thus far. She is less short of breath and feels better. Her only concern today is regarding her gout. Although she did not give allopurinol as her home medication she apparently takes it at home. OBJECTIVE: GENERAL: She is alert and oriented in no acute distress. VITAL SIGNS: Blood pressure is 130/75, pulse is regular at 90 beats per minute. She is afebrile. HEAD, EYES, EARS, NOSE, AND THROAT: She is normocephalic. Pupils are equal and reactive to light. Extraocular muscles are intact bilaterally. NECK: The neck veins are flat. Carotids have good upstrokes bilaterally without bruits. Thyroid is nonpalpable. RESPIRATORY: Breath sounds are equal bilaterally and clear to auscultation. CARDIOVASCULAR: Heart has a regular rhythm. Normal S1, S2. No S3, S4. GASTROINTESTINAL: Abdomen is soft, nontender without organomegaly. EXTREMITIES: Free of edema, digit clubbing, or cyanosis. NEUROLOGIC: Grossly intact. SKIN: Warm to touch. LYMPH NODES: Negative to palpation. IMPRESSION: 1. Acute on chronic diastolic heart failure. 2. Atrial fibrillation. 3. Obesity. 4. Sleep apnea. 5. Diabetes. 6. Hypertension. 7. Dyslipidemia. 8. Left bundle branch block. RECOMMENDATIONS: The patient continues to diurese and she still has some fluid around her feet and ankles. I will restart allopurinol at 100 mg daily, although I think the maintenance dose may be higher. She also has never had a sleep study. It has been arranged in the past but she was unable to attend due to weather conditions. After discharge, she needs a sleep evaluation.
--- NOTE | 2016-07-05 14:14 | Progress Note ---
Medicine Progress Note Date & Time of Visit: Jul 05, 2016 at 14:11. Subjective patient seen sitting up in bed, comfortable states she feels fine overall leg swelling improving no chest pain, dyspnea, dizziness no other symptoms Objective Last 8 Hrs Date Time Temp Pulse Resp B/P Pulse Ox O2 Delivery O2 Flow Rate FiO2 07/05/16 12:30 Nasal Cannula 3.0 07/05/16 11:58 37.0 59 16 117/68 97 Room Air 07/05/16 08:30 Nasal Cannula 3.0 07/05/16 07:54 36.8 97 16 122/69 92 Nasal Cannula 2.0 Physical Exam: General- oriented x 3, not in distress, speaks in sentences with no effort Neck- supple, no JVD Lungs- clear breath sounds bilaterally Heart- normal rate , irregularly irregular rhythm; no murmurs Abdomen- normal bowel sounds, soft, nontender Extremities- grade 1 pretibial edema, no calf tenderness; peripheral pulses intact Neuro- alert, oriented x 3; no gross focal deficits Skin- warm & dry Laboratory Results: Last 24 Hours Test 07/04/16 16:38 07/04/16 20:38 07/05/16 06:56 07/05/16 07:45 Bedside Glucose 103 mg/dl 150 mg/dl 91 mg/dl Creatinine 0.98 mg/dl Est Creatinine Clear Calc Drug Dose 59.6 ml/min Estimated GFR () 64.9 Estimated GFR (Non- 56.0 Test 07/05/16 11:27 07/05/16 13:56 Bedside Glucose 110 mg/dl Assessment & Plan ECHO -- Conclusions -- * The left ventricle is normal in size. * Ejection Fraction = 60-65%. * Septal motion is consistent with conduction abnormality. * The right ventricular systolic function is normal. * The left atrium is moderately dilated. * The right atrium is mild to moderately dilated. * There is moderate mitral regurgitation. * There is moderate tricuspid regurgitation. * The study was technically limited. 75 year old female with history of Atrial Fibrillation on Xarelto, Moderate Mitral Regurgitation, LBBB, Chronic Leg Edema other problems noted below presenting with progressive dyspnea, chest discomfort , leg swelling and weight gain. POSSIBLE CHF EXACERBATION, ACUTE ON CHRONIC DIASTOLIC TYPE, VALVULAR ETIOLOGY? MODERATE MITRAL AND TRICUSPID REGURGITATION - patient also admits dietary indiscretion recently - echo noted above - (+) increased edema increased Lasix to 40mg IV q12 continue usual Carvedilol, Valsartan - continue diuresis Cardiology consulted- appreciate the recommendations - Fluid restriction CHEST DISCOMFORT - likely from above - serial cardiac markers: negative started Aspirin continue Xarelto, Statin, Carvedilol, Valsartan HYPOKALEMIA - K 40meq BID ordered - monitor PAROXYSMAL A FIB - continue Carvedilol, Xarelto DM 2 - continue Lantus BID ISS HLD - continue Crestor KARMEN -CPAP intolerant HISTORY OF PE continue Xarelto LBBB chronic OBESITY DVT prophylaxis on Xarelto Disposition pending lives at home with will need Home Health Services Current Inpatient Medications: Current Inpatient Medications Medications (Trade) Dose Ordered Sig/Renetta Route Start Time Stop Time Status Last Admin Dose Admin Aspirin (Ecotrin Tab) 81 mg QAM PO 07/03/16 09:00 08/02/16 08:59 07/05/16 07:41 81 MG Insulin Aspart (novoLOG ASPART) SLIDING SCALE G... ACHS SC 07/02/16 21:00 08/01/16 20:59 07/05/16 12:23 1 UNITS Amlodipine Besylate (Norvasc Tab) 5 mg DAILY PO 07/03/16 09:00 08/02/16 08:59 07/05/16 07:42 5 MG Insulin Glargine (Lantus Solostar Pen) 30 unit BID SQ 07/02/16 21:00 08/01/16 20:59 07/05/16 08:16 30 UNIT Nitroglycerin (Nitrostat Tab) 0.4 mg PRN UT 07/02/16 19:00 08/01/16 18:59 Rivaroxaban (Xarelto Tab) 20 mg DAILY@1800 PO 07/02/16 21:00 08/01/16 20:59 07/04/16 17:20 20 MG Rosuvastatin Calcium (Crestor Tab) 10 mg DAILY PO 07/03/16 09:00 08/02/16 08:59 07/05/16 07:41 10 MG HCTZ/Valsartan (Diovan Hct 320/ 12.5MG Tab) 1 tab DAILY PO 07/03/16 09:00 08/02/16 08:59 07/05/16 07:41 1 TAB Glucose (Glucose 40% Gel) 15-30 GRAMS 15 GRAMS... UD PRN PO 07/02/16 19:15 08/01/16 19:14 Glucose (Glucose Chew Tab) 4-8 Tablets 4 Tabl... UD PRN PO 07/02/16 19:15 08/01/16 19:14 Dextrose (Dextrose 50% 50ML Syringe) 25-50ML OF 50% DW IV FOR... UD PRN IV 07/02/16 19:15 08/01/16 19:14 Glucagon (Glucagon Inj) 1 mg UD PRN SQ 07/02/16 19:15 08/01/16 19:14 Acetaminophen (Tylenol Tab) 650 mg Q4H PRN PO 07/02/16 19:15 08/01/16 19:14 Ondansetron HCl (Zofran Inj) 4 mg Q6H PRN IV 07/02/16 19:15 08/01/16 19:14 Carvedilol (Coreg Tab) 12.5 mg BID PO 07/02/16 21:00 08/01/16 20:59 07/05/16 07:41 12.5 MG Ipratropium [place] (Atrovent 0.02% 0.5MG/2.5ML Neb) 0.5 mg Q4H PRN INH 07/03/16 17:00 08/02/16 16:59 Levalbuterol 1.25 mg 1.25 mg Q4H PRN INH 07/03/16 17:00 08/02/16 16:59 Furosemide/Syringe (Lasix Inj/ Syringe) 4 ml @ 4 mls/min BID17 IV 07/04/16 17:00 08/03/16 20:59 07/05/16 07:40 4 MLS/MIN Potassium Chloride (Klor-Con Tab) 40 meq BID PO 07/05/16 09:00 08/04/16 08:59 07/05/16 07:41 40 MEQ Allopurinol (Zyloprim Tab) 100 mg DAILY PO 07/06/16 09:00 08/05/16 08:59
[2016-07-05 15:20] LABS: BUN/CREATININE RATIO 23.3 (10-20); CALCIUM 9.1 mg/dl (8.5-10.1); CREATININE 1.2 mg/dl (0.60-1.20)
[2016-07-05] MEDS: RIVAROXABAN 10 MG TAB PO SCH (17:18)
[2016-07-05 18:54] LABS: POTASSIUM 4.2 mmol/L (3.5-5.1)
[2016-07-06] VITALS (7 sets, daily range): BP systolic 104–143; BP diastolic 67–78; PULSE 83–90; TEMP 36.8–36.9; O2SAT 90–94
[2016-07-06 07:04] LABS: BUN/CREATININE RATIO 32.4 (10-20); CALCIUM 9.1 mg/dl (8.5-10.1); CREATININE 0.91 mg/dl (0.60-1.20); POTASSIUM 3.6 mmol/L (3.5-5.1)
[2016-07-06] MEDS: ROSUVASTATIN CALCIUM 10 MG TAB PO SCH (07:28)
[2016-07-06] MEDS: POTASSIUM CHLORIDE 20 MEQ TABCR PO SCH (07:29)
[2016-07-06] MEDS: VALSARTAN/HCTZ 320/12.5 MG TAB PO SCH (07:29)
[2016-07-06] MEDS: ASPIRIN 81 MG ECTAB PO SCH (07:29)
[2016-07-06] MEDS: AMLODIPINE BESYLATE 5 MG TAB PO SCH (07:29)
[2016-07-06] MEDS: CARVEDILOL 12.5 MG TAB PO SCH (07:30)
[2016-07-06] MEDS: FUROSEMIDE INJ 40 MG in SYRINGE 0 ML IV SCH ×2 (08:03→17:21)
[2016-07-06] MEDS: INSULIN ASPART 100 UNITS/ML 3 ML PEN SC SCH ×3 (08:48→17:21)
[2016-07-06] MEDS: INSULIN GLARGINE SOLOSTAR 100 UNITS/ML 3 ML PEN SQ SCH (08:54)
[2016-07-06] MEDS ORDERED: ALLOPURINOL 100 MG TAB PO SCH (09:00)
[2016-07-06] MEDS ORDERED: NURSING VERBAL MED ORDER ONE (09:00)
--- NOTE | 2016-07-06 15:08 | Cardiology Follow-Up ---
Subjective General Date of Service: Jul 06, 2016. Chief Complaint: follow-up shortness of breath, edema Pt evaluation today including: conversation w/ patient, physical exam History of Present Illness The patient is a 75 year old female seen in cardiology follow-up. Patient notes she is feeling slightly improved. She continues to tolerate diuretics. She states chest pressure and shortness of breath has resolved. LE edema much improved. Allergies Coded Allergies: No Known Allergies (Verified , 07/02/16) Social History Smoking Status: Never Smoker Hx Tobacco Use In Past Year?: No Hx Alcohol Use - Type And Amou: No Hx Substance Use - Type And Am: No Problem List Medical Problems: (1) Acute bronchitis Status: Acute (2) Atrial fibrillation Status: Acute (3) Congestive heart failure Status: Acute (4) Precordial chest pain Status: Acute Physical Exam Vital Signs Last Vital Signs Documentation Date Time Temp Pulse Resp B/P Pulse Ox O2 Delivery O2 Flow Rate FiO2 07/06/16 12:24 36.8 90 18 120/73 92 Room Air 07/05/16 16:15 3.0 Physical Exam Constitutional: Level of Distress: NAD Head: normocephalic ENMT: normal ENT inspection Lungs: Auscultation: no wheezing, no rales/crackles Abdomen: Inspection & Palpation: soft, no tenderness, guarding & rebound Musculoskeletal: normal Extremities: pertinent finding (trace pedal edema, improved overall per patient he is in the basilar is involved and I back to the office chartIs left bundleAll his other stuff the patient says that she feels vertigo unit where she is better than a I was thinking medication-morfin eliminate her hydrochlorothiazide and just plain Diovan increase her Lasix to 60) Neurologic: Gait & Station: pertinent finding (no focal deficits ) Assessment and Plan Assessment and Plan Impression: 75 her old female 1. Acute on chronic diastolic heart failure 2. History of persistent atrial fibrillation for which she is on chronic rate control, and is on Xarelto for stroke prophylaxis 3. Chronic left bundle branch block 4. Moderate mitral regurgitation, moderate tricuspid regurgitation 5. Hypertension 6. Dyslipidemia 7. Morbid obesity 8. Obstructive sleep apnea, history of intolerance of CPAP per Dr. Palmer's outpatient note Plan: Pt feels improved. From my standpoint she is stable for discharge on furosemide 60 mg PO daily ( increased from 40 mg). DC HCTZ Continue prior outpt dose of valsartan 320 mg Continue prior outpatient dose of potassium chloride 20 mEq daily. Add spironolactone 25 mg, one half tablet by mouth daily I will arrange outpatient follow-up appointment for patient within a week. Laboratory Results Last 24 Hours Test 07/05/16 16:39 07/05/16 20:47 07/06/16 06:04 07/06/16 07:40 Bedside Glucose 103 mg/dl 186 mg/dl 78 mg/dl Sodium Level 145 mmol/L Potassium Level 3.6 mmol/L Chloride Level 106 mmol/L Carbon Dioxide Level 27 mmol/L Anion Gap 12.0 mmol/L Blood Urea Nitrogen 30 mg/dl Creatinine 0.91 mg/dl Est Creatinine Clear Calc Drug Dose 64.1 ml/min Estimated GFR () 71.0 Estimated GFR (Non- 61.3 BUN/Creatinine Ratio 32.4 Random Glucose 72 mg/dl Calcium Level 9.1 mg/dl Test 07/06/16 11:57 Bedside Glucose 112 mg/dl
--- NOTE | 2016-07-06 16:32 | Progress Note ---
Medicine Progress Note Date & Time of Visit: Jul 06, 2016 at 16:27. Subjective patient states she feels better overall no dyspnea, chest pain leg swelling improved now no other symptoms states she is ready and would like to be discharged today Objective Last 8 Hrs Date Time Temp Pulse Resp B/P Pulse Ox O2 Delivery O2 Flow Rate FiO2 07/06/16 15:33 36.9 87 20 120/70 92 Room Air 07/06/16 12:24 36.8 90 18 120/73 92 Room Air 07/06/16 12:00 93 Room Air Physical Exam: General- oriented x 3, not in distress, speaks in sentences with no effort Neck- no JVD Lungs- clear breath sounds bilaterally, no rales/wheeze Heart- normal rate , irregularly irregular rhythm; no murmurs Abdomen- normal bowel sounds, soft, nontender Extremities- grade 1 pretibial edema, no calf tenderness; peripheral pulses intact Neuro- alert, oriented x 3; no gross focal deficits Skin- warm & dry Laboratory Results: Last 24 Hours Test 07/05/16 16:39 07/05/16 20:47 07/06/16 06:04 07/06/16 07:40 Bedside Glucose 103 mg/dl 186 mg/dl 78 mg/dl Sodium Level 145 mmol/L Potassium Level 3.6 mmol/L Chloride Level 106 mmol/L Carbon Dioxide Level 27 mmol/L Anion Gap 12.0 mmol/L Blood Urea Nitrogen 30 mg/dl Creatinine 0.91 mg/dl Est Creatinine Clear Calc Drug Dose 64.1 ml/min Estimated GFR () 71.0 Estimated GFR (Non- 61.3 BUN/Creatinine Ratio 32.4 Random Glucose 72 mg/dl Calcium Level 9.1 mg/dl Test 07/06/16 11:57 Bedside Glucose 112 mg/dl Assessment & Plan ECHO -- Conclusions -- * The left ventricle is normal in size. * Ejection Fraction = 60-65%. * Septal motion is consistent with conduction abnormality. * The right ventricular systolic function is normal. * The left atrium is moderately dilated. * The right atrium is mild to moderately dilated. * There is moderate mitral regurgitation. * There is moderate tricuspid regurgitation. * The study was technically limited. 75 year old female with history of Atrial Fibrillation on Xarelto, Moderate Mitral Regurgitation, LBBB, Chronic Leg Edema other problems noted below presenting with progressive dyspnea, chest discomfort , leg swelling and weight gain. POSSIBLE CHF EXACERBATION, ACUTE ON CHRONIC DIASTOLIC TYPE, VALVULAR ETIOLOGY? MODERATE MITRAL AND TRICUSPID REGURGITATION - patient also admits dietary indiscretion recently - echo noted above - given Lasix 40mg IV q12 diuresed, weight decreased from 126 to 122kg - evaluated by Cardiologists Dr. Charles and Dr. Cisneros cleared for discharge - discharge plan: increase Lasix to 60mg PO daily add Aldactone 12.5mg po daily d/c HCTZ, continue Valsartan 320mg daily continue usual Potassium supplement - patient given CHF education advised fluid restriction 1500ml/day and 2gNa diet advised re: signs of CHF decompensation, call PCP or return to ER immediately if present CHEST DISCOMFORT - likely from above - serial cardiac markers: negative continue Xarelto, Statin, Carvedilol, Valsartan HYPOKALEMIA - resolved PAROXYSMAL A FIB - continue Carvedilol, Xarelto DM 2 - continue Lantus BID and usual Insulin regimen HLD - continue Crestor KARMEN -CPAP intolerant HISTORY OF PE continue Xarelto LBBB chronic OBESITY DVT prophylaxis on Xarelto Disposition d/c home today with home health services ff up with PCP and Commercial Development Manager next week Current Inpatient Medications: Current Inpatient Medications Medications (Trade) Dose Ordered Sig/Renetta Route Start Time Stop Time Status Last Admin Dose Admin Aspirin (Ecotrin Tab) 81 mg QAM PO 07/03/16 09:00 08/02/16 08:59 07/06/16 07:29 81 MG Insulin Aspart (novoLOG ASPART) SLIDING SCALE G... ACHS SC 07/02/16 21:00 08/01/16 20:59 07/06/16 12:57 2 UNITS Amlodipine Besylate (Norvasc Tab) 5 mg DAILY PO 07/03/16 09:00 08/02/16 08:59 07/06/16 07:29 5 MG Insulin Glargine (Lantus Solostar Pen) 30 unit BID SQ 07/02/16 21:00 08/01/16 20:59 07/05/16 21:01 30 UNIT Nitroglycerin (Nitrostat Tab) 0.4 mg PRN UT 07/02/16 19:00 08/01/16 18:59 Rivaroxaban (Xarelto Tab) 20 mg DAILY@1800 PO 07/02/16 21:00 08/01/16 20:59 07/05/16 17:18 20 MG Rosuvastatin Calcium (Crestor Tab) 10 mg DAILY PO 07/03/16 09:00 08/02/16 08:59 07/06/16 07:28 10 MG HCTZ/Valsartan (Diovan Hct 320/ 12.5MG Tab) 1 tab DAILY PO 07/03/16 09:00 08/02/16 08:59 07/06/16 07:29 1 TAB Glucose (Glucose 40% Gel) 15-30 GRAMS 15 GRAMS... UD PRN PO 07/02/16 19:15 08/01/16 19:14 Glucose (Glucose Chew Tab) 4-8 Tablets 4 Tabl... UD PRN PO 07/02/16 19:15 08/01/16 19:14 Dextrose (Dextrose 50% 50ML Syringe) 25-50ML OF 50% DW IV FOR... UD PRN IV 07/02/16 19:15 08/01/16 19:14 Glucagon (Glucagon Inj) 1 mg UD PRN SQ 07/02/16 19:15 08/01/16 19:14 Acetaminophen (Tylenol Tab) 650 mg Q4H PRN PO 07/02/16 19:15 08/01/16 19:14 07/05/16 23:47 650 MG Ondansetron HCl (Zofran Inj) 4 mg Q6H PRN IV 07/02/16 19:15 08/01/16 19:14 Carvedilol (Coreg Tab) 12.5 mg BID PO 07/02/16 21:00 08/01/16 20:59 07/06/16 07:30 12.5 MG Ipratropium [place] (Atrovent 0.02% 0.5MG/2.5ML Neb) 0.5 mg Q4H PRN INH 07/03/16 17:00 08/02/16 16:59 Levalbuterol 1.25 mg 1.25 mg Q4H PRN INH 07/03/16 17:00 08/02/16 16:59 Furosemide/Syringe (Lasix Inj/ Syringe) 4 ml @ 4 mls/min BID17 IV 07/04/16 17:00 08/03/16 20:59 07/06/16 08:03 4 MLS/MIN Potassium Chloride (Klor-Con Tab) 40 meq BID PO 07/05/16 09:00 08/04/16 08:59 07/06/16 07:29 40 MEQ Allopurinol (Zyloprim Tab) 100 mg DAILY PO 07/06/16 09:00 08/05/16 08:59 07/06/16 07:29 100 MG
[2016-07-06] MEDS ORDERED: SPR25 PO (16:37)
[2016-07-06] MEDS ORDERED: CRG125 PO (16:37)
[2016-07-06] MEDS ORDERED: DVN80 PO (16:37)
[2016-07-06] MEDS ORDERED: ALL100 PO (16:37)
[2016-07-06] MEDS ORDERED: FRS/40 PO (16:37)
--- NOTE | 2016-07-06 16:43 | Discharge Summary ---
Discharge Summary Admission Date: Jul 02, 2016 at 19:08 Discharge Date: Jul 06, 2016 Discharge Disposition: Home with services Principal Diagnosis: CHF EXACERBATION, ACUTE ON CHRONIC DIASTOLIC TYPE MODERATE MITRAL AND TRICUSPID REGURGITATION Secondary Diagnoses/Problems: PLEASE REFER TO HOSPITAL COURSE BELOW FOR FURTHER DETAILS. Procedures: ECHO -- Conclusions -- * The left ventricle is normal in size. * Ejection Fraction = 60-65%. * Septal motion is consistent with conduction abnormality. * The right ventricular systolic function is normal. * The left atrium is moderately dilated. * The right atrium is mild to moderately dilated. * There is moderate mitral regurgitation. * There is moderate tricuspid regurgitation. * The study was technically limited. Consultations: EXCHANGE ARCHITECT DR. CHARLES/DR. MORAN Pending Studies/Follow-Up: PLEASE REFER TO HOSPITAL COURSE BELOW. Medication Reconciliation New Medications: Furosemide (Lasix) 40 Mg Tab 60 MG PO DAILY for 30 Days, #45 TAB 2 Refills Allopurinol (Allopurinol) 100 Mg Tab 100 MG PO DAILY for 30 Days, #30 TAB Carvedilol (Carvedilol) 12.5 Mg Tab 12.5 MG PO BID for 30 Days Spironolactone (Spironolactone) 25 Mg Tab 12.5 MG PO QAM for 30 Days, #15 TAB 2 Refills Valsartan (Diovan) 80 Mg Tab 320 MG PO QAM for 30 Days, #30 TAB 2 Refills Continued Medications: Albuterol (Ventolin) Inh 2 PUFFS INH QID for 5 Days, INHALER Amlodipine (Norvasc) 5 Mg Tab 5 MG PO DAILY, TAB Insulin Aspart (Novolog) 100 Unit/ Inj 6 UNITS SC AC, BTL Insulin Glargine (Lantus Solostar Pen) 100 Unit/ Inj 30 UNITS SQ BID Metformin Hcl (Glucophage) 1,000 Mg Tab 1000 MG PO BIDM, TAB Nitroglycerin (Nitrostat) 0.4 Mg Sub 0.4 MG UT PRN, BTL Potassium Ext Rel (Klor-Con) 20 Meq Tabcr 20 MEQ PO DAILY, TAB TAKE 40 MEQ FOR 1 WEEK, STARTED 11/16/15, THEN 20 MEQ DAILY. Rivaroxaban (Xarelto) 20 Mg Tab 20 MG PO QDD, TAB Rosuvastatin Calcium (Crestor) 10 Mg Tab 10 MG PO DAILY, TAB Discontinued Medications: Furosemide (Lasix) 20 Mg Tab 20 MG PO DAILY, TAB 40 MG X 3 DAYS, STARTING 11/16/15, THEN 20 MG DAILY. Valsartan/Hctz (Diovan Hct 320MG/12.5MG) 1 Tab Tab 1 TAB PO DAILY, TAB Admission Information HPI (per Admitting provider): 75 year old female with history of Atrial Fibrillation on Xarelto, Moderate Mitral Regurgitation, LBBB, Chronic Leg Edema other problems noted below presenting with progressive dyspnea, chest discomfort , leg swelling and weight gain. Follows with Dr. Palmer for Cardiology. Patient was apparently at her usual state of health until last week when she started to notice exertional dyspnea, associated with chest tightness, resolving with rest. She has also noticed increased leg swelling and weight gain of about 10 lbs. Patient admits to consuming more potato chips and canned soup recently. She regularly takes her medications. She presented to her PCP and was advised to proceed to the ER. At the ER, she arrived with stable VS. BNP is elevated, CXR showed possible CHF pattern. Lasix 40mg IV was ordered. On exam, patient sitting up in in bed, appears comfortable. States she feels somewhat improved- has been diuresing well at the ER. No chest pain, palpitations, dizziness, nausea. No other symptoms. Physical Exam (per Admitting): General Appearance: WD/WN, no apparent distress Head: normocephalic, atraumatic Eyes: normal inspection, PERRL, EOMI, sclerae normal ENT: normal ENT inspection, hearing grossly normal, pharynx normal Neck: supple, no adenopathy, thyroid normal, + JVD (mild) Respiratory/Chest: chest non-tender, lungs clear, normal breath sounds, no respiratory distress, no accessory muscle use Cardiovascular: + systolic murmur (grade 2-3/6), + irregularly irregular Abdomen/GI: normal bowel sounds, non tender, soft Extremities/Musculoskelatal: + swelling (grade 1-2 lower leg edema, no tenderness/warmth/erythema) Neurologic/Psych: clinical resource coordinator II-XII nml as tested, no motor/sensory deficits, alert , normal mood/affect, normal reflexes, oriented x 3 Skin: normal color, warm/dry, no rash Lymphatic: no adenopathy Hospital Course ECHO -- Conclusions -- * The left ventricle is normal in size. * Ejection Fraction = 60-65%. * Septal motion is consistent with conduction abnormality. * The right ventricular systolic function is normal. * The left atrium is moderately dilated. * The right atrium is mild to moderately dilated. * There is moderate mitral regurgitation. * There is moderate tricuspid regurgitation. * The study was technically limited. 75 year old female with history of Atrial Fibrillation on Xarelto, Moderate Mitral Regurgitation, LBBB, Chronic Leg Edema other problems noted below presenting with progressive dyspnea, chest discomfort , leg swelling and weight gain. POSSIBLE CHF EXACERBATION, ACUTE ON CHRONIC DIASTOLIC TYPE, VALVULAR ETIOLOGY? MODERATE MITRAL AND TRICUSPID REGURGITATION - patient also admits dietary indiscretion recently - echo noted above - given Lasix 40mg IV q12 diuresed, weight decreased from 126 to 122kg - evaluated by Cardiologists Dr. Charles and Dr. Moran cleared for discharge - discharge plan: increase Lasix to 60mg PO daily add Aldactone 12.5mg po daily d/c HCTZ, continue Valsartan 320mg daily continue usual Potassium supplement - patient given CHF education advised fluid restriction 1500ml/day and 2gNa diet advised re: signs of CHF decompensation, call PCP or return to ER immediately if present CHEST DISCOMFORT - likely from above - serial cardiac markers: negative continue Xarelto, Statin, Carvedilol, Valsartan HYPOKALEMIA - resolved - repeat K on ff up with PCP PAROXYSMAL A FIB - continue Carvedilol, Xarelto DM 2 - continue Lantus BID and usual Insulin regimen HLD - continue Crestor KARMEN -CPAP intolerant HISTORY OF PE continue Xarelto LBBB chronic OBESITY DVT prophylaxis on Xarelto Disposition d/c home today with home health services ff up with PCP and Machine Tech next week Total time spent on discharge = 40 minutes This includes examination of the patient, discharge planning, medication reconciliation, and communication with other providers. Discharge Instructions Discharge Instructions Admission Reason for Admission: Congestive Heart Failure Discharge Discharge Diagnosis / Problem: ACUTE EXACERBATION OF CONGESTIVE HEART FAILURE Discharge Goals Goal(s): Diagnostic testing, Therapeutic intervention Activity Recommendations Activity Limitations: as noted below (NO HEAVY EXERTION UNTIL SEEN BY PRIMARY CARE PHYSICIAN.) . Instructions / Follow-Up Instructions / Follow-Up Call your Primary Care doctor if any of the following symptoms or problems start or get worse: * Shortness of breath or difficulty breathing * Wake up at night short of breath * Chest pain * Cough * Swelling of your hands, feet, or legs * More fatigued or tired with your normal activity * Palpitations - sudden fast heart beats WEIGHT * Weigh yourself every morning after using the bathroom. * Use the same scale. * Wear the same amount of clothing. * Write your weight down on a chart. * Call your Primary Care doctor if you gain more than 2-3 pounds in 1-2 days. MEDICATIONS * Use this discharge instruction sheet for medication instructions. * Take your medications at the time your doctor ordered. * Do not skip a dose of your medicines. * If you miss a dose of medicine, take it as soon as possible, but DO NOT DOUBLE A DOSE. * Read your medicine information when you get home. * Know all of the side effects of your medicine. If in doubt, ask your pharmacist * Call your Primary Care doctor's office if you have any side effects. * Be sure all of your doctors know what medicine and herbs you take (including cold, flu, and herbal medicine). Take the following with you to your follow-up doctor appointments: * Weight Chart * Medication List * List of questions Do not drink excessive alcohol, beer or wine. Current Hospital Diet Patient's current hospital diet: AHA Diet (Heart Healthy), Diabetes Type 2 Diet Discharge Diet Recommended Diet: AHA Diet (Heart Healthy), Low Sodium Diet (2gm Na), Diabetes Type 2 Diet Fluid Restriction: 1500 ml (6 cups) Pending Studies Studies pending at discharge: no Laboratory Results Hemoglobin A1c Test 07/03/16 03:30 Range/Units Estimated Average Glucose 140 mg/dl Hemoglobin A1c 6.5 H 4.5-5.6 % Medical Emergencies . Who to Call and When: Call 911 or go to the Emergency Room if: * If at any time you feel your situation is an emergency * You have tightness or pain in your chest that does not go away with rest or Nitroglycerin * You are very short of breath even with rest . Non-Emergent Contact Non-Emergency issues call your: Primary Care Provider Call Non-Emergent contact if: you have a fever, you have any medication questions REFER TO INSTRUCTIONS ABOVE. . Past History Medical & Surgical History: (1) Congestive heart failure (2) Solitary nodule of lung (3) History of pulmonary embolus (PE) (4) HTN (hypertension) (5) Dyslipidemia (6) Diabetes mellitus, type II (7) Obesity (8) KARMEN (obstructive sleep apnea) (9) PAF (paroxysmal atrial fibrillation) (10) LBBB (left bundle branch block) (11) History of bilateral knee arthroplasty . "Provider Documentation" section prepared by Shay Spaulding. VTE Core Measure Inpt VTE Proph given/why not?: Other Anticoagulation (XARELTO)
[2016-07-06] MEDS: RIVAROXABAN 10 MG TAB PO SCH (17:22)
[2016-07-06] MEDS ORDERED: SPIRONOLACTONE 25 MG TAB PO SCH (17:30)
[2016-07-06] MEDS ORDERED: VALSARTAN 80 MG TAB PO SCH (17:30)
[2016-07-07] MEDS ORDERED: VALSARTAN 80 MG TAB PO SCH (09:00)
[2016-07-07] MEDS ORDERED: SPIRONOLACTONE 25 MG TAB PO SCH (09:00)
== END 2016-07-06 19:22 | disposition home health service (06) | DRG 292 ==
LOC: ENRESERVTM → ENRESERVDT → C.EDB 13:31 → C.MED 19:08
PROVIDERS: ADMIT Internal Medicine; ATTEND Internal Medicine
DX: I50.33 Acute on chronic diastolic (congestive) heart failure (principal); I48.1 Persistent atrial fibrillation; Z68.43 Body mass index [BMI] 50.0-59.9, adult; I44.7 Left bundle-branch block, unspecified; I11.0 Hypertensive heart disease with heart failure; I48.0 Paroxysmal atrial fibrillation; G47.33 Obstructive sleep apnea (adult) (pediatric); E87.6 Hypokalemia; E78.5 Hyperlipidemia, unspecified; M54.9 Dorsalgia, unspecified; E66.01 Morbid (severe) obesity due to excess calories; R07.2 Precordial pain; I08.1 Rheumatic disorders of both mitral and tricuspid valves; R79.89 Other specified abnormal findings of blood chemistry; E11.9 Type 2 diabetes mellitus without complications; Z96.659 Presence of unspecified artificial knee joint; M25.519 Pain in unspecified shoulder; Z79.4 Long term (current) use of insulin; Z79.01 Long term (current) use of anticoagulants; Z79.899 Other long term (current) drug therapy

== ENCOUNTER → 2017-05-15 | Outpatient (CLI) | payer OTHER ==
[~2017-05-15] MED LIST changes: +ALL100 PO; -AMOX875T PO; -ASPI81TA25 PO; -CARV6.25 PO; +CRG125 PO; -DICL75TA2 PO; +DVN80 PO; +FRS/40 PO; -FURO-85 PO; -PRED10TA PO; +SPR25 PO; -VALS-10 PO
--- NOTE | 2017-05-15 13:46 | MAMMOGRAPHY REPORT ---
BILATERAL DIGITAL SCREENING MAMMOGRAM WITH CAD: 05/15/2017 CLINICAL HISTORY: Routine screening. Patient has no complaints. TECHNIQUE: Current study was also evaluated with a Computer Aided Detection (CAD) system. Bilateral CC and MLO views and a cleavage view were obtained. COMPARISON: Comparison is made to exams dated: 05/14/2016 mammogram, 05/01/2015 mammogram, 4 mammogram, 04/28/2013 mammogram, 04/26/2011 mammogram, and 04/24/2010 mammogram - [facility]. BREAST COMPOSITION: There are scattered areas of fibroglandular density in both breasts. FINDINGS: No suspicious masses, calcifications, or areas of architectural distortion are noted in ei ther breast. There has been no significant interval change compared to prior exams. Bilateral benign appearing calcifications and bilateral nodularity is stable compared to prior exams. IMPRESSION: ACR BI-RADS CATEGORY 2: BENIGN There is no mammographic evidence of malignancy. A 1 year screening mammogram is recommended. The pa tient will receive written notification of the results. Approximately 10% of breast cancers are not detected with mammography. A negative mammographic report should not delay biopsy if a clinically suggestive mass is present. Mara Fallon M.D. /:05/15/2017 12:29:59 Machine Puller: Gwendolyn PAINTING(Dayana)(Joshua), [facility] letter sent: Normal 1/2 BI-RADS Code: ACR BI-RADS Category 2: Benign
== END | disposition home or self-care (01) ==
LOC: C.MAMM 10:40
PROVIDERS: ATTEND Family Medicine
DX: Z12.31 Encounter for screening mammogram for malignant neoplasm of breast (principal)

== ENCOUNTER 2017-08-11 14:58 | Emergency (ER) | payer OTHER ==
[~2017-08-11] VITALS: Ht 154.9 cm; Wt 117.5 kg
[2017-08-11 15:09] VITALS: TEMP 36.7; Ht 154.9 cm; Wt 117.5 kg
[2017-08-11] MEDS ORDERED: SODIUM CHLORIDE 0.9% 500ML 500 ML IV STA (15:21)
--- NOTE | 2017-08-11 15:24 | EMERGENCY ROOM VISIT NOTE ---
History Report prepared by Derrick: Rodo Vasquez Under the Supervision of: Dr. Abdiel Perla M.D. First contact with patient: 15:15 Chief Complaint: HYPOTENSION Stated Complaint: BLOOD PRESSURE DROPPING History of Present Illness The patient is a 77 year old female who presents to the Emergency Room with complaints of hypotension that began 1 week ago. She spoke with her doctor who referred her to the ED. Her lowest BP was 104/62 last week at the doctor's office. She complains of left leg swelling, cough, and intermittent abdominal pain. She states she has been constipated for the past 4 days and had a small bowel moment this morning. She is unsure if she is taking her blood pressure medication. She denies weight gain, chest pain, SOB, urinary symptoms, diarrhea , bloody stools, fevers, headaches, falls, injuries, and lower extremity rash. She states her tiredness is unchanged from baseline. Of note, the patient does check her blood pressure at home with a blood pressure cuff which is a few units off from the one in her doctor's office. Source of History: patient, spouse/significant other Onset: 1 week ago Position: other (global) Symptom Intensity: pain rated as 0/10 Quality: other (hypotension) Timing: constant Associated Symptoms: + cough, + abdominal pain (intermittent), No fevers, No headache, No chest pain, No SOB, No melena, No diarrhea, No urinary symptoms , No rash Note: Patient complains of left leg swelling. Patient denies weight gain, falls, and injuries. Review of Systems See HPI for pertinent positives & negatives. A total of 10 systems reviewed and were otherwise negative. Past Medical & Surgical Medical Problems: (1) Diabetes mellitus, type II (2) Dyslipidemia (3) History of pulmonary embolus (PE) (4) HTN (hypertension) (5) LBBB (left bundle branch block) (6) Obesity (7) KARMEN (obstructive sleep apnea) (8) PAF (paroxysmal atrial fibrillation) (9) Solitary nodule of lung Surgical Problems: (1) History of bilateral knee arthroplasty Family History Diabetes mellitus FH: heart disease Hypertension Social History Smoking Status: Never Smoker Alcohol Use: none Drug Use: none Marital Status: Housing Status: lives with family Occupation Status: retired Current/Historical Medications Scheduled Allopurinol (Zyloprim), 300 MG PO DAILY Carvedilol (Carvedilol), 12.5 MG PO BID Furosemide (Lasix), 40 MG PO DAILY Insulin Aspart (Novolog), 6 UNITS SC AC Insulin Glargine (Lantus Solostar Pen), 30 UNITS SQ BID Metformin Hcl (Glucophage), 1,000 MG PO BIDM Nitroglycerin (Nitrostat), 0.4 MG UT PRN Potassium Ext Rel (Klor-Con), 40 MEQ PO DAILY Rivaroxaban (Xarelto), 15 MG PO DAILYBD Rosuvastatin Calcium (Crestor), 10 MG PO DAILY Spironolactone (Spironolactone), 12.5 MG PO QAM Valsartan (Diovan), 320 MG PO QAM Allergies Coded Allergies: No Known Allergies (Verified , 07/02/16) Physical Exam Vital Signs Date Time Temp Pulse Resp B/P (MAP) Pulse Ox O2 Delivery O2 Flow Rate FiO2 08/11/17 16:55 77 18 121/72 98 Room Air 08/11/17 15:09 36.7 94 18 86/50 96 Room Air Physical Exam GENERAL: Patient is well appearing and in no acute distress. Overweight. EYES: No scleral icterus, unremarkable pupils. ENT: Mucous membranes moist, no nasal congestion. NECK: No masses appreciated, no meningismus, trachea is midline. RESPIRATORY: No dyspnea. Clear to auscultation and equal bilaterally. No wheeze , no rhonchi. CARDIOVASCULAR: Blood pressure cuff barely fits arm. Blood pressure is 114/76 on repeat check. Regular rate and rhythm. No murmurs, rubs, gallops appreciated. GASTROINTESTINAL: Abdomen soft, nontender, no peritonitis. Bowel sounds positive. No masses appreciated. BACK: No midline tenderness, no CVA tenderness EXTREMITIES: Normal motion all extremities, no cyanosis, no edema. NEUROLOGIC: Alert and oriented, no acute motor or sensory deficits, no focal weakness, cranial nerves grossly intact. SKIN: No rash, no jaundice, no diaphoresis. Medical Decision & Procedures ER Provider Diagnostic Interpretation: Radiology results and stated below per my review and radiologist interpretation: ABDOMEN 2VIEW W/PA CHEST RTN CLINICAL HISTORY: 77 years-old Female presenting with Constipation x 4 days. TECHNIQUE: PA view of the chest and supine and upright views of the abdomen were obtained. COMPARISON: Chest x-ray from 07/02/2016. FINDINGS: Atherosclerosis of aortic arch. Cardiac silhouette enlarged. Mildly low lung volumes. Minimal bandlike opacities at the lung bases. No large effusion or pneumothorax. Nonobstructive bowel gas pattern. Moderate stool burden in the descending colon. No gross pneumoperitoneum. Allowing for bowel gas and stool, no calcifications to suggest nephrolithiasis. Left shoulder arthroplasty. Slightly exaggerated thoracic kyphosis. Degenerative changes of the spine. IMPRESSION: 1. Mildly low lung volumes with hypoventilatory changes. 2. Moderate stool burden in the descending colon, which could suggest constipation. No bowel obstruction or free air. Electronically signed by: Star Tao M.D. 08/11/2017 4:41 PM Dictated Date/Time: 08/11/2017 4:39 PM Laboratory Results 08/11/17 15:45 Red Blood Count 3.82, Mean Corpuscular Volume 94.0, Mean Corpuscular Hemoglobin 31.2, Mean Corpuscular Hemoglobin Concent 33.1, Mean Platelet Volume 10.5, Neutrophils (%) (Auto) 74.1, Lymphocytes (%) (Auto) 18.1, Monocytes (%) (Auto) 5.6, Eosinophils (%) (Auto) 1.6, Basophils (%) (Auto) 0.4, Neutrophils # (Auto) 7.22, Lymphocytes # (Auto) 1.76, Monocytes # (Auto) 0.55, Eosinophils # (Auto) 0.16, Basophils # (Auto) 0.04 08/11/17 15:45 Test 08/11/17 15:45 White Blood Count 9.75 K/uL (4.8-10.8) Red Blood Count 3.82 M/uL (4.2-5.4) Hemoglobin 11.9 g/dL (12.0-16.0) Hematocrit 35.9 % (37-47) Mean Corpuscular Volume 94.0 fL (80-100) Mean Corpuscular Hemoglobin 31.2 pg (25-34) Mean Corpuscular Hemoglobin Concent 33.1 g/dl (32-36) Platelet Count 230 K/uL (130-400) Mean Platelet Volume 10.5 fL (7.4-10.4) Neutrophils (%) (Auto) 74.1 % Lymphocytes (%) (Auto) 18.1 % Monocytes (%) (Auto) 5.6 % Eosinophils (%) (Auto) 1.6 % Basophils (%) (Auto) 0.4 % Neutrophils # (Auto) 7.22 K/uL (1.4-6.5) Lymphocytes # (Auto) 1.76 K/uL (1.2-3.4) Monocytes # (Auto) 0.55 K/uL (0.11-0.59) Eosinophils # (Auto) 0.16 K/uL (0-0.5) Basophils # (Auto) 0.04 K/uL (0-0.2) RDW Standard Deviation 51.1 fL (36.4-46.3) RDW Coefficient of Variation 15.1 % (11.5-14.5) Immature Granulocyte % (Auto) 0.2 % Immature Granulocyte # (Auto) 0.02 K/uL (0.00-0.02) Anion Gap 6.0 mmol/L (3-11) Est Creatinine Clear Calc Drug Dose 29.5 ml/min Estimated GFR () 29.1 Estimated GFR (Non- 25.1 BUN/Creatinine Ratio 29.9 (10-20) Calcium Level 9.3 mg/dl (8.5-10.1) Magnesium Level 2.5 mg/dl (1.8-2.4) Troponin I < 0.015 ng/ml (0-0.045) Laboratory results as reviewed by me. Medications Administered Medications (Trade) Dose Ordered Sig/Renetta Route Start Time Stop Time Status Last Admin Dose Admin Sodium Chloride 500 ml @ 999 mls/hr Q31M STAT IV 08/11/17 15:21 08/11/17 15:51 DC 08/11/17 15:57 999 MLS/HR ECG Per My Interpretation Indication: other (hypotension) Rate (beats per minute): 112 Rhythm: atrial fibrillation (112 RVR) Findings: no acute ischemic change Comparison ECG Date: 07/02/2016 Change: Similar to previous other than rate compared to 07/02/2016. ED Course 1515: The patient was evaluated in room A4B. A complete history and physical exam was performed. 1645: I checked on the patient and she is resting comfortably. I rechecked her blood pressure which is 121/74. She feels much better after IV fluids. She states that she wants to go home and will call her PCP tomorrow for a follow up appointment. 1655: Reevaluated the patient. Discussed results and discharge instructions: She verbalized understanding and agreement. The patient is ready for discharge. Medical Decision Differential: Sepsis, Infectious (UTI/Pneumonia/Meningitis/etc), Metabolic/ Electrolyte Abnormality, Cardiac, Dehydration, Anemia, Hepatic, Endocrine, Toxicologic, Neurologic, amongst other pathologies entertained. 77 yr old female arrives for evaluation of hypotension at home. A bit low for triage but repeat in room is OK. Labs with some renal insufficiency which is likely secondary to taking lasix. BP up and normal with IV fluids and sitting up. She is in no distress and feeling better. Otherwise labs look good. No urinary symptoms. Lungs clear and CXR OK. No eivdence this is infectious. No cardiac cause appreciated. No SHOB nor symptoms of PE. She looks well and is happy. Very much wants to go home now. Notes some constipation last few days likely dehydration related but with stool noted on abdo xrays will given Mag Citrate after discussing risks. Hold lasix next few days until seen by PCP. Reviewed symptoms requiring RTED. Stable and looks comfortable at discharge with . Medication Reconcilliation Current Medication List: was personally reviewed by me Blood Pressure Screening Patient's blood pressure: Low blood pressure Blood pressure disposition: Did not require urgent referral Impression Primary Impression: Dehydration Additional Impressions: Constipation Acute renal insufficiency Scribe Attestation The scribe's documentation has been prepared under my direction and personally reviewed by me in its entirety. I confirm that the note above accurately reflects all work, treatment, procedures, and medical decision making performed by me. Departure Information Dispostion Home / Self-Care Referrals Marion Recinos DO (PCP) Patient Instructions My [facility] Additional Instructions Stop your lasix for the next 2 to 3 days until you are cleared by your doctor. Call your doctor tomorrow to set up recheck in the next few days. Keep hydrated but avoid over hydration or salt intake. Return if lightheaded, weak, passing out, chest pain, shortness of breath or other concerns. For constipation use half bottle of Mag Citrate now, followed by second half in 4 to 6 hours if no bowel movement. Return if severe abdominal pain or vomiting. Using enemas or rectal suppositories may help with constipation as well. Problem Qualifiers
[2017-08-11] MEDS ORDERED: ALLO300T2 PO (15:53)
[2017-08-11] MEDS ORDERED: FRS/40 PO (15:53)
[2017-08-11] MEDS ORDERED: RIVA1.5T PO (15:53)
[2017-08-11] MEDS ORDERED: POTA20TA16 PO (15:53)
[2017-08-11 16:00] LABS: BASO % 0.4 %; BASO ABS # 0.04 K/uL (0-0.2); EOS % 1.6 %; EOS ABS # 0.16 K/uL (0-0.5); HEMATOCRIT 35.9 % (37-47); HEMOGLOBIN 11.9 g/dL (12.0-16.0); IG# 0.02 K/uL (0.00-0.02); LYMPH % 18.1 %; LYMPH ABS # 1.76 K/uL (1.2-3.4); MEAN CORPUSCULAR HEMOGLOBIN 31.2 pg (25-34); MEAN CORPUSCULAR HGB CONC 33.1 g/dl (32-36); MEAN PLATELET VOLUME 10.5 fL (7.4-10.4); MONO % 5.6 %; MONO ABS # 0.55 K/uL (0.11-0.59); NEUT % 74.1 %; NEUT ABS # 7.22 K/uL (1.4-6.5); PLATELET COUNT 230 K/uL (130-400); RED CELL DISTRIBUTION WIDTH CV 15.1 % (11.5-14.5); RED CELL DISTRIBUTION WIDTH SD 51.1 fL (36.4-46.3); WHITE BLOOD COUNT 9.75 K/uL (4.8-10.8)
[2017-08-11 16:20] LABS: BLOOD UREA NITROGEN 56 mg/dl (7-18); CALCIUM 9.3 mg/dl (8.5-10.1); CARBON DIOXIDE 26 mmol/L (21-32); CREATININE 1.88 mg/dl (0.60-1.20); GLUCOSE 137 mg/dl (70-99); SODIUM 135 mmol/L (136-145)
--- NOTE | 2017-08-11 16:43 | DIAGNOSTIC IMAGING REPORT ---
ABDOMEN 2VIEW W/PA CHEST RTN CLINICAL HISTORY: 77 years-old Female presenting with Constipation x 4 days. TECHNIQUE: PA view of the chest and supine and upright views of the abdomen were obtained. COMPARISON: Chest x-ray from 07/02/2016. FINDINGS: Atherosclerosis of aortic arch. Cardiac silhouette enlarged. Mildly low lung volumes. Minimal bandlike opacities at the lung bases. No large effusion or pneumothorax. Nonobstructive bowel gas pattern. Moderate stool burden in the descending colon. No gross pneumoperitoneum. Allowing for bowel gas and stool, no calcifications to suggest nephrolithiasis. Left shoulder arthroplasty. Slightly exaggerated thoracic kyphosis. Degenerative changes of the spine. IMPRESSION: 1. Mildly low lung volumes with hypoventilatory changes. 2. Moderate stool burden in the descending colon, which could suggest constipation. No bowel obstruction or free air. Electronically signed by: Star Tao M.D. 08/11/2017 4:41 PM Dictated Date/Time: 08/11/2017 4:39 PM
[2017-08-11 16:55] VITALS: BP 121/72; PULSE 77; O2SAT 98
[2017-08-11] MEDS ORDERED: MAGNESIUM CITRATE 296 ML/BTL PO ONE (17:00)
== END 2017-08-11 17:28 | disposition home or self-care (01) ==
LOC: C.EDB 14:59 → C.EDA 17:28
DX: E86.0 Dehydration (principal); K59.00 Constipation, unspecified; N28.9 Disorder of kidney and ureter, unspecified; E11.29 Type 2 diabetes mellitus with other diabetic kidney complication; Z79.4 Long term (current) use of insulin; I10 Essential (primary) hypertension; E78.5 Hyperlipidemia, unspecified; I44.7 Left bundle-branch block, unspecified; I48.0 Paroxysmal atrial fibrillation; G47.33 Obstructive sleep apnea (adult) (pediatric); E66.9 Obesity, unspecified; Z79.01 Long term (current) use of anticoagulants; Z86.711 Personal history of pulmonary embolism; Z83.3 Family history of diabetes mellitus; Z82.49 Family history of ischemic heart disease and other diseases of the circulatory system

== ENCOUNTER → 2017-12-23 | Day surgery (SDC) | payer OTHER ==
[~2017-12-23] VITALS: Ht 152.4 cm; Wt 118.0 kg
[~2017-12-23] MED LIST changes: +ACETAMINOPHEN 325 MG TAB PO PRN; +ALBU18002; -ALBUAER2 INH; -ALL100 PO; +ALLO100T PO; +ALLO300T2 PO; -AMLO-110 PO; +CARV3.122 PO; +CHOL1000 PO; +DVN/160 PO; +FENTANYL CITRATE INJ 50 MCG/1 ML 2 ML VIAL ONE; +GLC/500 PO; +HEPARIN SOD (PORCINE) 1000 UNIT/ML 10 ML VIAL ONE; +INSDGIPEN SC; +Losartan PO; +METF750T PO; +MIDAZOLAM HCL 1 MG/ML 2ML VIAL ONE; +NITROGLYCERIN/D5W 100MCG/ML 20ML SYR ONE; +NiCARDipine HCL INJ 2.5 MG/ML 10 ML AMP ONE; +ONDANSETRON INJ 2 MG/ML 2 ML VIAL IV PRN; +POTA-639 PO; -POTA20TA16 PO; +RIVA1.5T PO; -RIVA1TAB4 PO; +SODIUM CHLORIDE 0.9% 1000ML 250 ML IV PRN; +SPIR25TA6 PO; -SPR25 PO; +XRL10 PO
[2017-12-23 08:45] VITALS: BMI 51.0
[2017-12-23 08:46] VITALS: PULSE 90; TEMP 37; O2SAT 95; Ht 152.4 cm; Wt 118.0 kg
--- NOTE | 2017-12-23 10:03 | HISTORY & PHYSICAL EXAMINATION ---
DATE OF ADMISSION: 12/23/2017 HISTORY OF PRESENT ILLNESS: Patient presents to the cardiac catheterization lab for procedure. Carries a history of chronic diastolic heart failure, chronic atrial fibrillation, left bundle branch block, hypertension, moderate mitral regurgitation, morbid obesity, and sleep apnea. The patient was most recently evaluated in the Emergency Department in July due to hypotension. I saw her for followup on 11/05 in my office where she complained of continued dyspnea on exertion. A resting 2D transthoracic echocardiogram was performed demonstrating a severe decline in her LV systolic function with an estimated ejection fraction 25-29%. Moderate mitral regurgitation was noted with septal motion consistent with left bundle branch block. Further ischemic evaluation recommended in the form of cardiac catheterization. The patient's Xarelto is placed on hold. She is here today to have a coronary angiography. She offers no complaints. REVIEW OF SYSTEMS: Pertinent positives noted above. PAST MEDICAL HISTORY: 1. Left bundle branch block. 2. Atrial fibrillation. 3. Morbid obesity. 4. KARMEN. 5. Moderate mitral regurgitation. 6. Chronic kidney disease, stage 3. 7. Chronic diastolic heart failure. PAST SURGICAL HISTORY: 1. Colonoscopy. 2. Knee arthroplasty. 3. Retinal surgery. FAMILY HISTORY: Negative for premature CAD or sudden cardiac . SOCIAL HISTORY: The patient is a lifelong nonsmoker. ALLERGIES: No known drug allergies. CURRENT OUTPATIENT MEDICATIONS: 1. Losartan 100 mg daily. 2. Xarelto 15 mg daily. 3. Lasix 40 mg daily. 4. Lantus 29 units twice daily. 5. Metformin 1000 mg twice daily. 6. Aldactone one-half tablet daily. 7. FlexPen 6 units before meals. 8. Carvedilol 3.125 mg twice daily. 9. Allopurinol 100 mg daily. 10. Albuterol inhaler 2 puffs as needed. 11. Crestor 10 mg daily. 12. Nitrostat as needed. 13. Potassium chloride 20 mEq daily. LABORATORY DATA: CBC; hemoglobin is 13.4, platelet count 203. INR 1.32. BMP: Her BUN is 24, creatinine 1.2. Glomerular filtration rate 43.3. Sodium 144, potassium 4.2, chloride 104, CO2 is 27, calcium is 9.7. PHYSICAL EXAMINATION: VITAL SIGNS: Stable. GENERAL: Obese, awake, alert and oriented x3. HEART: Regular with normal S1, S2. LUNGS: Clear without rales, rhonchi, or wheeze. ABDOMEN: Obese, nontender. No rebound. No guarding. EXTREMITIES: Warm and dry with mild pedal edema. NEUROLOGIC: Demonstrates no focal deficit. FINAL IMPRESSION: A 77-year-old female with left bundle branch block and chronic atrial fibrillation, presents for coronary angiography due to marked decline in LV systolic function and chronic systolic heart failure. PLAN AND RECOMMENDATIONS: The risks, benefits, alternatives to coronary angiography were discussed at length. The patient understands these risks and is willing to proceed with surgery as well as potential percutaneous intervention if indicated. All questions answered to her satisfaction. Further recommendations pending result of cardiac catheterization.
--- NOTE | 2017-12-23 11:28 | Post Sedation Assessment ---
Post Sedation Assessment General Date of Sedation Dec 23, 2017. Vital Signs: Vital Signs Past 12 Hours Date Time Temp Pulse Resp B/P (MAP) Pulse Ox O2 Delivery O2 Flow Rate FiO2 12/23/17 08:46 37 90 95 Room Air Post Procedure Recovery Score Activity: (2) Moves 4 extremities * Respiration: (2) Deep breath/cough Circulation: (2) +/-20% PreAnes Value Consciousness: (2) Fully Awake Oxygen Saturation: (2) > 92% On Room Air Post Anesthesia Score: 10 Discharge Sedation Level of Care: Fast Track Phase II Post Sedation Plan On clinical assessment, the patient appears to have tolerated the sedation without complications. Patient is recovering as anticipated. Patient will continue to be monitored by nursing and may be discharged when sedation discharge criteria are met per below protocol. Upon Completions of procedure and additional 15 minutes continue every 5 minute vital signs and the P.A.R. score; then discharge to a Phase I or Fast Track to Phase II per the following guidelines: * Discharge Patient to appropriate Phase II area if PAR is 8 or greater or return to pre- procedure baseline. The post - procedure orders will be as directed. * If PAR score is less than 8 or not return to pre-procedure baseline then patient will follow Phase I monitoring till PAR is reached for Phase II. The Phase I may be done in procedure room or may call to secure a Phase I area. * If naloxone or flumazenil are used for reversal, hold in Phase I for an additional 60 -120 minutes before discharge to Phase II. Please call the Sedation Physician to re-evaluate and complete post-note for discharge to Phase II area. Do NOT discharge from procedure sedation or Phase 1 until post- sedation evaluation note is complete by procedure /sedation MD Sedation Discharge Instructions to be given to the patient at discharge to home.
--- NOTE | 2017-12-23 11:28 | Pre Sedation Assessment ---
Pre Sedation Assessment General Date of Sedation: Dec 23, 2017. Vital Signs Past 12 Hours Date Time Temp Pulse Resp B/P (MAP) Pulse Ox O2 Delivery O2 Flow Rate FiO2 12/23/17 08:46 37 90 95 Room Air Review Cardiovascular: + systolic murmur, + irregularly irregular Lungs: lungs clear, normal breath sounds Pre-Sedation Airway Assessment Smoking Status: Never Smoker Hx of Sleep Apnea: Yes Short Thick Neck: No Thyro-mental Distance: > 3 Finger Breadths Oral Cavity: WNL Mallampati Classification: Class I ASA Classification: Class II NPO Status Date of Last Intake of Fluids: Dec 22, 2017 Time of Last Intake of Fluids: 2199 Date of Last Intake of Solids: Dec 22, 2017 Time of Last Intake of Solids: 2199 Procedure Planning Contraindications for Sedation: None Current Medications Reviewed: Yes Notes The planned sedation has been discussed with the patient. Informed Consent was obtained. I have identified the patient, determined the appropriateness of sedation and have assessed the patient immediately prior to the procedure. All medicine(s) and interventions are by my order.
--- NOTE | 2017-12-23 11:38 | Cardiac Catheterization ---
Procedure Note Procedure Date Dec 23, 2017. Pre-Procedure Diagnosis CHF AUC Score 7 Post-Procedure Diagnosis Mild CAD Procedure(s) Performed Coronary Angiography, Left Heart Cath Rn Heart Dr. Palmer Neon Molder(s) Martha Patrick Estimated Blood Loss 5cc Medication(s) Fentanyl, Heparin, Nicardipine, Nitroglycerin, Versed, Lidocaine 1% Summary of Findings Mild non-obstructive CAD Hemodynamics Rest Ao: 113/59/81 Final Ao: 121/69/92 LV: 127/4/13 Recommendations Medical therapy and/or Counseling Specimens None Radiation Exposure (mGy) 1834 Contrast (mls) 55 Anesthesia Moderate sedation. Start 1054. End 1126. Procedural Complication(s) None Disposition [employer] Holding/Recovery ACC Data Cardiac Status Clinical evaluation leading to the procedure CAD Presntation: Stable angina Heart Failure: Yes, NYHA Class: CCS III Cardiogenic Shock w/in 24Hrs: No Cardiac Arrest w/in 24Hrs: No Imaging studies past 6 months: Yes Stress studies past 6 months: No Coronary Anatomy Dominant: Right Left Main (% Stenosis): Normal LAD (% Stenosis): Proximal (20%), Mid (10%) D1 (% Stenosis): Normal D2 (% Stenosis): Normal Circumflex (% Stenosis): Proximal (20%) OM1 (% Stenosis): Ostial (30%) OM2 (% Stenosis): Normal RCA (% Stenosis): Distal (20% smooth) R PDA (% Stenosis): Normal R PL1 (% Stenosis): Normal R PL2 (% Stenosis): Normal Diagnostic Status: Elective Closure Device Percutaneous Entry Location: Radial Closure Device: Radial Band Intraprocedure Events Significant Dissection: No Perforation: No
--- NOTE | 2017-12-23 11:42 | Discharge Instructions ---
Discharge Instructions Procedure Procedure Date: Dec 23, 2017. Reason for Visit: Abnormal Echo *Kopinski To Do. Discharge Discharge Date: Dec 23, 2017. Discharge Diagnosis: Nonischemic cardiomyopathy Last Recorded Wt (Kilograms): 118 Anesthesia Post Anesthesia Instructions: If you have had General Anesthesia or IV Sedation: * Do not drive today. * Resume driving when surgeon permits. * Do not make important decisions or sign legal documents today. * Call surgeon for: 1. Temperature elevations greater than 101 degrees F. 2. Uncontrollable pain. 3. Excessive bleeding. 4. Persistent nausea and vomiting. 5. Medication intolerance (nausea, vomiting or rash). * For nausea and vomiting use only clear liquids such as: tea, soda, bouillon until nausea subsides, then gradually increase diet as tolerated. * If you have any concerns or questions, call your surgeon's office. If physician is unavailable and it is an emergency, call 911 or go to the nearest emergency room. Instructions Activity Recommendations: limitations as noted below Return to School/Work: with the following limitations Recommended Home Diet: low sodium, low cholesterol, diabetes diet Allergies: Coded Allergies: No Known Allergies (Verified , 07/02/16) Provider Instructions ACTIVITY RECOMMENDATIONS: Excess manipulation of the wrist should be avoided for the next 24-48 hours. * No lifting over 2 pounds (approximately a 1/2 gallon of milk) with the utilized arm for 24 hours. * No strenuous activity such as bowling or tennis for 3 days. * Keep the site of the procedure covered with a bandage for 24 hours. *You may shower the day after the procedure. Do not take a tub bath or submerge the puncture site in water for the next 3 days. *Do not operate any motorized equipment for 3 days. SPECIAL CARE INSTRUCTIONS: The site may be slightly bruised and sore following your procedure. Should any of the following occur, contact the Dr. who performed your procedure. 1. Redness/inflammation, swelling, chills, or fever, or colored drainage at procedure site within 3-7 days after your procedure. 2. Coldness, discoloration, ongoing numbness, severe pain, or swelling. Expect mild tingling of hand and tenderness at the puncture site for up to three days. If this persists beyond three days, or other symptoms develop, notify the Dr. who performed your procedure. BLEEDING: If the procedure site on your wrist begins to bleed, do not panic 1. Place 1 or 2 fingers firmly just slightly above the insertion site to stop the bleeding. You may be able to feel your pulse as you hold pressure. 2. Lift your finger after 5 minutes to see if the bleeding has stopped. 3. Once the bleeding has stopped, gently wipe the wrist area clean with a bandage. * If the bleeding from your wrist does not stop after 10 minutes, or if there is a large amount of bleeding or spurting, call 911 (do not drive yourself to the hospital). SKIN IRRITATION: * You may experience some redness and/or swelling in the area where radiation was administered. If any skin irritation occurs, please contact your family physician. FOLLOW UP VISIT: Keep any scheduled doctor appointments. Follow Up Follow-up with: Dr. Palmer as scheduled. An appointment will be scheduled with an lead teller at [facility] to discuss implantation of an BiV-ICD (defibrillator). Krystal Burnsy Recommendations: Call your doctor if: * Temperature above 101 degrees * Pain not relieved by pain medicine ordered * There is increased drainage or redness from any incision * You have any unanswered questions or concerns. Your Doctors Instructions noted above were prepared by provider Jony Palmer. Patient Signature Section: Patient Instructions Signature Page Kim Jurado Patient (or Guardian) Signature/Date: I have read and understand the instructions given to me by my caregivers. Caregiver/RN/Doctor Signature/Date: The above-named patient and/or guardian has received patient instructions on this date. + Original Patient Signature Page (only) stays with chart. Please make copy for patient.
[2017-12-23 14:00] VITALS: BP 139/69; PULSE 87; O2SAT 96
== END | disposition home or self-care (01) ==
LOC: C.CATH 08:26
PROVIDERS: ATTEND Internal Medicine Cardiovascular Disease
DX: I25.10 Atherosclerotic heart disease of native coronary artery without angina pectoris (principal); I50.32 Chronic diastolic (congestive) heart failure; I48.2 Chronic atrial fibrillation; I44.7 Left bundle-branch block, unspecified; I34.0 Nonrheumatic mitral (valve) insufficiency; N18.3 Chronic kidney disease, stage 3 (moderate); I13.0 Hypertensive heart and chronic kidney disease with heart failure and stage 1 through stage 4 chronic kidney disease, or unspecified chronic kidney disease; E66.01 Morbid (severe) obesity due to excess calories; G47.30 Sleep apnea, unspecified; Z79.899 Other long term (current) drug therapy; Z79.01 Long term (current) use of anticoagulants; Z79.4 Long term (current) use of insulin